=== PATIENT | female | born 1950 | race Caucasian/White ===

== ENCOUNTER 2024-09-11 09:48 | Outpatient (REF) | payer OTHER, SELFPAY ==
[2024-09-11 10:05] LABS: MANUAL DIFF FLAG NO
[2024-09-11 10:50] LABS: Basophils Percent Auto 0.5 % (0-2); Eosinophils Absolute Auto 0.1 X10*3/uL (0.0-0.4); Eosinophils Percent Auto 1.2 % (0-4); Hematocrit 34.2 % (37.0-47.0); Imm Gran Abs Auto 0.02 X10*3/uL (0.00-0.03); Imm Gran Pct Auto 0.3 % (0.0-0.4); Lymphocytes Absolute Auto 2.1 X10*3/uL (1.2-4.9); Lymphocytes Percent Auto 35.5 % (20-40); Mean Corpuscular HGB Conc 32.2 g/dl (31.0-35.0); Mean Corpuscular Hemoglobin 27.6 pg (27.0-33.0); Mean Corpuscular Volume 85.9 fL (80.0-98.0); Mean Platelet Volume 11.3 fL (9.4-12.3); Monocytes Absolute Auto 0.5 X10*3/uL (0.1-1.2); Monocytes Percent Auto 8.6 % (2-11); Neutrophils Absolute Auto 3.1 x10*3/uL (2.0-8.3); Neutrophils Percent Auto 53.9 % (45-73); Platelet Count 284 X10*3/uL (160-400); Red Blood Count 3.98 X10*6/uL (4.20-5.50); Red Cell Distribution Width 17.2 % (11.0-16.0); White Blood Count 5.8 X10*3/uL (4.8-10.8)
[2024-09-11 11:43] LABS: Alanine Aminotransferase 19 U/L (0-31); Albumin Level 4.1 g/dL (3.5-5.0); Alkaline Phosphatase 86 U/L (39-117); Anion Gap 10 (12-20); Aspartate Amino Transferase 23 U/L (5-31); Bilirubin Total 0.5 mg/dL (0.0-1.0); Blood Urea Nitrogen 11 mg/dL (9-16); Calcium 9.5 mg/dL (8.4-10.2); Carbon Dioxide 28 mmol/L (22-29); Chloride 109 mmol/L (96-108); Cholesterol 186 mg/dL (<200); Estimated Glomerular Filt Rate > 60; Glucose Random 86 mg/dL (60-115); HDL Cholesterol 38 mg/dL (>40); LDL Cholesterol Calculated 122 mg/dL (<100); Potassium 3.9 mmol/L (3.3-5.1); Sodium 143 mmol/L (135-145); Total Protein 7.3 g/dL (6.5-8.0); Triglycerides 131 mg/dL (<150)
[2024-09-11 12:01] LABS: Folate 5.6 ng/mL (> or = 4.0); Vitamin B12 371 pg/mL (200-900)
== END 2024-09-11 09:49 | disposition home or self-care (01) ==
LOC: HO.LAB 09:48
PROVIDERS: PCP Internal Medicine; Visit Provider Internal Medicine
DX: E78.00 Pure hypercholesterolemia, unspecified (principal); G30.1 Alzheimer's disease with late onset; I10 Essential (primary) hypertension; J45.909 Unspecified asthma, uncomplicated; K21.9 Gastro-esophageal reflux disease without esophagitis
CPT/HCPCS: 36415; 80053; 80061; 82607; 82746; 84443; 85025

== ENCOUNTER 2024-10-11 10:41 | Inpatient (IN) | payer MEDICARE, MEDICAID, SELFPAY ==
[2024-10-11] VITALS (8 sets, daily range): BP systolic 136–156; BP diastolic 72–80; PULSE 109–127; RESP 18; TEMP 36.2–38.1; O2SAT 88–98; BMI 27.7
--- NOTE | ~2024-10-11 | XR_ITS ---
CLINICAL HISTORY: cough chest congestion 2 view chest x-ray. Comparison: None Findings: The lungs are adequately expanded. No focal confluent opacity. No effusion or pneumothorax. Cardiac and mediastinal contours are within normal limits. No acute osseous abnormality Impression: No acute process. This document has been electronically signed by: Ranjit Alvarez MD on 10/11/2024 11:44:25
[2024-10-11 11:10] LABS: MANUAL DIFF FLAG NO
[2024-10-11 11:16] LABS: Basophils Percent Auto 0.4 % (0-2); Eosinophils Absolute Auto 0.1 X10*3/uL (0.0-0.4); Eosinophils Percent Auto 0.9 % (0-4); Hematocrit 35.2 % (37.0-47.0); Hemoglobin 11.7 g/dl (12.0-16.0); Imm Gran Abs Auto 0.02 X10*3/uL (0.00-0.03); Imm Gran Pct Auto 0.4 % (0.0-0.4); Lymphocytes Absolute Auto 1.1 X10*3/uL (1.2-4.9); Lymphocytes Percent Auto 19.8 % (20-40); Mean Corpuscular HGB Conc 33.2 g/dl (31.0-35.0); Mean Corpuscular Volume 81.3 fL (80.0-98.0); Monocytes Absolute Auto 0.4 X10*3/uL (0.1-1.2); Monocytes Percent Auto 7.5 % (2-11); Neutrophils Absolute Auto 3.8 x10*3/uL (2.0-8.3); Platelet Count 249 X10*3/uL (160-400); Red Blood Count 4.33 X10*6/uL (4.20-5.50); Red Cell Distribution Width 16.3 % (11.0-16.0); White Blood Count 5.4 X10*3/uL (4.8-10.8)
[2024-10-11 11:22] LABS: IDNOW Serial# 58CA691E; Strep A Nucleic Acid Negative (Negative)
[2024-10-11 11:33] LABS: Alanine Aminotransferase 9 U/L (0-31); Albumin Level 4.1 g/dL (3.5-5.0); Alkaline Phosphatase 91 U/L (39-117); Anion Gap 13 (12-20); Aspartate Amino Transferase 28 U/L (5-31); Bilirubin Total 0.3 mg/dL (0.0-1.0); Blood Urea Nitrogen 9 mg/dL (9-16); Calcium 8.8 mg/dL (8.4-10.2); Carbon Dioxide 21 mmol/L (22-29); Chloride 109 mmol/L (96-108); Creatinine Clr Calc Pharmacy 63.2; Estimated Glomerular Filt Rate > 60; Glucose Random 101 mg/dL (60-115); Potassium 3.3 mmol/L (3.3-5.1); Sodium 140 mmol/L (135-145); Total Protein 7.6 g/dL (6.5-8.0)
[2024-10-11 11:48] LABS: Influenza A PCR NEGATIVE (Negative); Influenza B PCR NEGATIVE (Negative); Resp Syncy Virus RNA Qual PCR POSITIVE (Negative); SARS COV2 PCR INHOUSE NEGATIVE (Negative)
[2024-10-11] MEDS: 0.9 % Sodium Chloride 1,000 ML 999 ML IV (13:05)
--- NOTE | 2024-10-11 13:05 | ED_ITS ---
HPI - General Adult General Chief complaint: General Medical Stated complaint: fever dizzy abd pain Time Seen by Provider: 10/11/24 12:36 Source: patient, family and old records reviewed Mode of arrival: ambulatory Limitations: no limitations History of Present Illness ED Provider: DIGNA LÓPEZ narrative: 73 yo female with PMH of asthma, HLD, HTN, GERD who has been sick for 5 days with cough, body aches, nausea and not feeling well. No recent travel or procedures using her INH without relief. No production to the cough, denies abdominal pain diarrhea. Last took tylenol yesterday. Finally came today as she couldn't take it anymore. She hasnot taken any medications today. She just feels tired and weak now. MD complaint: URI, weakness Onset (ago): day(s) (5) Radiation: non-radiation Severity: mild and moderate Quality: other (tightness) Pain Consistency: intermittent Relieving factors: none Exacerbating factors: movement Associated symptoms: cough, fever/chills, loss of appetite, malaise, nausea/vomiting, shortness of breath and weakness Treatments prior to arrival: none Related Data Allergies Allergy/AdvReac Type Severity Reaction Status Date / Time No Known Allergies Allergy Verified 10/11/24 10:52 Review of Systems 2 Review of Systems: Constitutional : pos Fever, pos Chills ENT/Mouth : No Hoarseness, No sore throat, No Rhinorrhea Eyes: No Redness, No Discharge, No Vision Changes Cardiovascular : No Chest Pain, positive SOB, positive Dyspnea on Exertion, No Edema Respiratory : positive Cough, pos Sputum, positive Wheezing, Gastrointestinal : pos Nausea, No Vomiting, No Diarrhea, No abdominal Pain Genitourinary : No Dysuria, No Hematuria Musculoskeletal : No joint pain, No Myalgias Skin : No rash Neuro : No Weakness, No Numbness, No Headache Psych : No anxiety, depression All other systems reviewed and are negative [facility] Past Medical History Attestation statement: The following information was validated with the patient. Source: old records reviewed Medical History HTN (hypertension) GERD (gastroesophageal reflux disease) Asthma Social History Social History (Updated 10/11/24 @ 13:27 by Dorota Tran DO) Patient Tobacco Use Status: Never used Tobacco Advance Directives: No Advance Directives Information Provided: No Do you have a plan to hurt others: No Plan Physical Exam ED Vital Signs: Vital Signs - 24 hr 10/11/24 10:49 10/11/24 14:03 10/11/24 14:56 Temperature 100.6 F H 98.4 F Pulse Rate 112 H 114 H 127 H Respiratory Rate 18 18 18 Blood Pressure 156/80 H 136/77 Pulse Oximetry 96 96 Oxygen Delivery Method Room Air Room Air BMI result Body Mass Index 27.7 Appearance: Alert. Oriented X3. No acute distress. Eyes: Pupils equal, round and reactive to light. ENT: Pharynx mildly dry MM Neck: Normal inspection. Neck supple. CVS: Normal heart rate and rhythm. Pulses normal. Respiratory: No respiratory distress. Breath sounds diminshed throughout Abdomen: Soft and non-tender. Skin: Skin warm and dry. Normal skin color. Normal skin turgor. Extremities: No lower extremity edema. No calf ttp Neuro: Oriented X 3. No motor deficit. No sensory deficit. Course Course Course Narrative: patient is already feeling better Medications Administered Discontinued Medications Generic Name Dose Route Start Last Admin Trade Name Freq PRN Reason Stop Dose Admin Albuterol Sulfate 5 mg/ 0 mg 10/11/24 13:58 10/11/24 14:03 Albuterol/Ipratropium 3 ml INHALE 10/11/24 13:59 1 each ONCE ONE Administration Acetaminophen 1,000 mg in 100 mls @ 400 mls/hr 10/11/24 12:48 10/11/24 13:21 Ofirmev IV 10/11/24 13:02 Infused ONCE ONE Infusion Sodium Chloride 1,000 mls @ 999 mls/hr 10/11/24 12:48 10/11/24 13:05 Ns IV 10/11/24 13:48 999 mls/hr .Q1H1M ONE Administration Methylprednisolone Sodium Succinate 60 mg 10/11/24 13:13 10/11/24 13:32 Methylprednisolone Sod Succ 125 Mg/2 Ml Vial IVPUSH 10/11/24 13:14 60 mg ONCE ONE Administration Ondansetron HCl 4 mg 10/11/24 12:48 10/11/24 13:06 Ondansetron Hcl 4 Mg/2 Ml Vial IVPUSH 10/11/24 12:49 4 mg ONCE ONE Administration Medical Decision Making Medical Decision Making MDM Narrative: 73 yo female with PMH of asthma, HLD, HTN, GERD who has been sick for 5 days with URI symptoms, fatigue, poor PO intake at this time will obtain labs, CXR for pneumonia, viral panel - start on fluids, tylenol and zofran. She is not hypoxic and has no cp to suggest ACS/VTE. She seems more infectious. I will give her neb and start on steroids given increased wheezing and use on INH at home. If she feels better can tolerate PO will DC home with steroids and nausea medications. Differential Diagnosis Differential Diagnoses: The differential diagnosis associated with the presentation includes URI, bronchitis, pneumonia, dehydration Admission/Observation Consideration of admission/observation: Escalation of care including admission/observation considered 88% on RA, up to 94% now on 2L NC has no O2 at home, feels better but still tachypneic will admit will admit for further work up Consult Healthcare Provider Management of the patient was discussed with: Hospitalist (will admit) Lab Data MDM Lab Attestation statement: I reviewed the patient's lab results. 10/11/24 11:04 10/11/24 11:04 Labs: Lab Results 10/11/24 Range/Units 11:04 WBC 5.4 (4.8-10.8) X10*3/uL RBC 4.33 (4.20-5.50) X10*6/uL Hgb 11.7 L (12.0-16.0) g/dl Hct 35.2 L (37.0-47.0) % MCV 81.3 (80.0-98.0) fL MCH 27.0 (27.0-33.0) pg MCHC 33.2 (31.0-35.0) g/dl RDW 16.3 H (11.0-16.0) % Plt Count 249 (160-400) X10*3/uL MPV 10.0 (9.4-12.3) fL Immature Gran % (Auto) 0.4 (0.0-0.4) % Neut % (Auto) 71.0 (45-73) % Lymph % (Auto) 19.8 L (20-40) % [place] % (Auto) 7.5 (2-11) % Eos % (Auto) 0.9 (0-4) % Baso % (Auto) 0.4 (0-2) % Lymph # (Auto) 1.1 L (1.2-4.9) X10*3/uL [place] # (Auto) 0.4 (0.1-1.2) X10*3/uL Eos # (Auto) 0.1 (0.0-0.4) X10*3/uL Baso # (Auto) 0.0 (0.0-0.2) X10*3/uL Abs Immat Gran (auto) 0.02 (0.00-0.03) X10*3/uL Absolute Neuts (auto) 3.8 (2.0-8.3) x10*3/uL Absolute Nucleated RBC 0.000 (0.0-0.012) X10*3/uL Nucleated RBC % (auto) 0.0 (0.0-0.2) /100WBC Sodium 140 (135-145) mmol/L Potassium 3.3 (3.3-5.1) mmol/L Chloride 109 H (96-108) mmol/L Carbon Dioxide 21 L (22-29) mmol/L Anion Gap 13 (12-20) BUN 9 (9-16) mg/dL Creatinine 0.67 (0.5-1.4) mg/dL Estim Creat Clear Calc 63.2 Estimated GFR > 60 Random Glucose 101 (60-115) mg/dL Calcium 8.8 D (8.4-10.2) mg/dL Total Bilirubin 0.3 (0.0-1.0) mg/dL AST 28 (5-31) U/L ALT 9 (0-31) U/L Alkaline Phosphatase 91 (39-117) U/L Troponin I High Sens < 2.7 (<3.5-17.0) ng/L Total Protein 7.6 (6.5-8.0) g/dL Albumin 4.1 (3.5-5.0) g/dL Influenza Type A (PCR) NEGATIVE (Negative) Influenza Type B (PCR) NEGATIVE (Negative) RSV RNA Qual (PCR) POSITIVE A (Negative) SARS-CoV-2 RNA (RT-PCR) NEGATIVE (Negative) S. pyogenes GrpA REED Negative (Negative) Independent Interpretation I performed an independent interpretation of an: EKG and Plain X-Ray (no pneumonia) Interpretation: Rate: 127 Rhythm: sinus tachycardia [place]: left Normal P waves. Normal ANEESH. Normal QRS complex. ST T wave : no NAYANA, inverted t waves V1-V3, nonspecific ST T wave changes laterally, inverted t waves III, aVF qTC: 427 prior studies: ST faster than priors changes could be due to rate The study has been interpreted contemporaneously by me. . Radiology Impression Discussion of test interpretation with radiology: I have reviewed the radiologist's reading. Independent Historian Clinical information obtained from an independent historian. History obtained from or confirmed by: Other (family) External Record Review External record reviewed: Outpatient record Prescription Management I considered prescription management with: Antibiotic and Other Discharge Plan Discharge Clinical Impression: RSV infection, Sinus tachycardia, Hypoxia Patient Disposition: Admitted As Inpatient Print Language: Mongolian
[2024-10-11] MEDS: Acetaminophen 1,000 MG/100 ML PIGGYBACK 400 MG IV (13:06)
[2024-10-11] MEDS: ondansetron HCL 4 MG/2 ML VIAL IVPUSH (13:06)
--- NOTE | 2024-10-11 13:25 | ECG_ITS ---
Test Reason : WEAKNESS Blood Pressure : / mmHG Vent. Rate : 127 BPM Atrial Rate : 127 BPM P-R Int : 126 ms QRS Dur : 072 ms QT Int : 294 ms P-R-T Axes : 019 -01 -51 degrees QTc Int : 427 ms Sinus tachycardia Inferior infarct , age undetermined Cannot rule out Anterior infarct , age undetermined Abnormal ECG When compared with ECG of 06-APR-2005 12:41, Inferior infarct is now Present ST now depressed in Lateral leads Inverted T waves have replaced nonspecific T wave abnormality in Inferior leads Nonspecific T wave abnormality now evident in Anterolateral leads Referred By: Dorota Tran Electronically Signed By:HERMINIO WILLARD MD
[2024-10-11] MEDS: methylPREDNISolone Sod Succ 125 MG/2 ML VIAL 60 MG IVPUSH (13:32)
[2024-10-11 13:46] LABS: Troponin-I High Sensitivity < 2.7 ng/L (<3.5-17.0)
[2024-10-11] MEDS: Albuterol Sulfate 5 MG, Albuterol/Iprat 2.5/0.5MG 3 ML 3 ML INHALE (14:03)
--- NOTE | 2024-10-11 15:34 | P.HPHOSP_ITS ---
History of Present Illness Date of Service: 10/11/24 Chief Complaint: Shortness of the breath 73F PMH moderate persistent asthma, hypertension, hyperlipidemia presented with shortness of breath. Patient has been feeling unwell for about 5 days prior to presentation with cough, body aches, subjective fevers, shortness of breath. She has tried to use her short-acting inhaler with no improvement. In ED found to be RSV positive and hypoxic to 88% on room air. Chest x-ray unremarkable. Review of Systems 2 Review of Systems: Yes all other systems are reviewed and are negative [facility] Medical History HTN (hypertension) GERD (gastroesophageal reflux disease) Asthma Social History Patient Tobacco Use Status: Never used Tobacco Advance Directives: No Advance Directives Information Provided: No Do you have a plan to hurt others: No Plan Meds Allergies Allergy/AdvReac Type Severity Reaction Status Date / Time No Known Allergies Allergy Verified 10/11/24 10:52 Home Medications ?Medication ?Instructions ?Recorded ?Confirmed ?Last Taken ?Type albuterol sulfate 90 mcg/actuation 2 puff inhalation QID PRN asthma 10/11/24 10/11/24 10/10/24 History aerosol inhaler atorvastatin 20 mg tablet 20 mg PO DAILY 10/11/24 10/11/24 10/10/24 History budesonide-formoterol HFA 160 1 puff inhalation BID 10/11/24 10/11/24 Unknown History mcg-4.5 mcg/actuation aerosol inhaler losartan 100 mg tablet 100 mg PO DAILY 10/11/24 10/11/24 10/10/24 History pantoprazole 40 mg tablet,delayed 40 mg PO DAILY@0630 10/11/24 10/11/24 10/10/24 History release sennosides 8.6 mg-docusate sodium 2 tab PO BEDTIME 10/11/24 10/11/24 10/10/24 History 50 mg tablet (Senexon-S) Physical Exam 2 Vital Signs and Narrative: Vital Signs: Last Vital Signs Temp 98.4 F 10/11/24 14:56 Pulse 127 H 10/11/24 14:56 Resp 18 10/11/24 14:56 BP 136/77 10/11/24 14:56 Pulse Ox 88 L 10/11/24 15:19 O2 Del Method Room Air 10/11/24 15:19 BMI result Body Mass Index 27.7 General: AO X 3, no acute distress Resp: CTA bilateral, no accessory muscles used CVS: S1,S2,RRR GI: soft, non tender, non distended Neuro: motor grossly intact, alert Psych: appropriate affect, appropriate insight Results Labs 10/11/24 11:04 10/11/24 11:04 Labs: Laboratory Results - last 24 hr 10/11/24 11:04 MCV 81.3 MCH 27.0 MCHC 33.2 RDW 16.3 H Plt Count 249 MPV 10.0 Immature Gran % (Auto) 0.4 Neut % (Auto) 71.0 Lymph % (Auto) 19.8 L [place] % (Auto) 7.5 Eos % (Auto) 0.9 Baso % (Auto) 0.4 Lymph # (Auto) 1.1 L [place] # (Auto) 0.4 Eos # (Auto) 0.1 Baso # (Auto) 0.0 Abs Immat Gran (auto) 0.02 Absolute Neuts (auto) 3.8 Absolute Nucleated RBC 0.000 Nucleated RBC % (auto) 0.0 Anion Gap 13 Estim Creat Clear Calc 63.2 Estimated GFR > 60 Random Glucose 101 Calcium 8.8 D Total Bilirubin 0.3 AST 28 ALT 9 Alkaline Phosphatase 91 Troponin I High Sens < 2.7 Total Protein 7.6 Albumin 4.1 Influenza Type A (PCR) NEGATIVE Influenza Type B (PCR) NEGATIVE RSV RNA Qual (PCR) POSITIVE A SARS-CoV-2 RNA (RT-PCR) NEGATIVE S. pyogenes GrpA REED Negative Assessment and Plan (1) RSV infection: Qualifiers: RSV infection type: acute bronchitis Qualified Code(s): J20.5 - Acute bronchitis due to respiratory syncytial virus Status: Acute Plan 73F PMH moderate persistent asthma, hypertension, hyperlipidemia presented with shortness of breath Acute hypoxic respiratory failure due to moderate persistent asthma with acute decompensation due to RSV Steroids, DuoNebs Wean O2 as tolerated Hypertension losartan Hyperlipidemia Continue statin DVT prophylaxis with Lovenox Full Code Patient with asthma exacerbation due to RSV causing her to be hypoxic expected require at least 2 midnights inpatient Quality Stroke Does the patient have a stroke diagnosis?: No VTE Prior VTE?: No VTE Risk Level:: Medical - moderate - high VTE Device Contraindication: Treatment Not Indicated VTE Drug Contraindication: N/A - Med Ordered
[2024-10-11] MEDS: Albuterol/Iprat 2.5/0.5MG 3 ML AMPUL.NEB INHALE ×2 (15:57→18:55)
--- NOTE | 2024-10-11 17:09 | PHA.MEDREC ---
Pharmacy Consult ? Medication Reconciliation Pharmacy has completed the medication reconciliation, spoke to patient using floor space allocator services. Patient confirmed all medications, said she doesn't take hydrochlorothiazide. Patient also confirmed albuterol inhaler and said she only uses one inhaler but has claims for symbicort. Called [facility] to confirm and they said this was still an active prescription and patient last picked up in sep 2024. Denied any OTC use and last taken was 10/10/24.
[2024-10-11] MEDS: Enoxaparin Sodium 40 MG/0.4 ML SYRINGE SUBCUT (17:46)
[2024-10-11] MEDS: 0.9 % Sodium Chloride Flush 3 ML SYRINGE IVFLUSH (17:47)
[2024-10-12 03:50] VITALS: BP 117/59; PULSE 72; RESP 18; TEMP 36.3; O2SAT 96
[2024-10-12 06:15] LABS: Hematocrit 30.8 % (37.0-47.0); Mean Corpuscular HGB Conc 32.5 g/dl (31.0-35.0); Mean Corpuscular Hemoglobin 26.9 pg (27.0-33.0); Mean Corpuscular Volume 82.8 fL (80.0-98.0); Mean Platelet Volume 10.9 fL (9.4-12.3); Platelet Count 200 X10*3/uL (160-400); Red Blood Count 3.72 X10*6/uL (4.20-5.50); Red Cell Distribution Width 16.6 % (11.0-16.0)
[2024-10-12 06:19] LABS: Anion Gap 12 (12-20); Blood Urea Nitrogen 8 mg/dL (9-16); Calcium 8.5 mg/dL (8.4-10.2); Carbon Dioxide 22 mmol/L (22-29); Chloride 110 mmol/L (96-108); Creatinine Clr Calc Pharmacy 64.2; Estimated Glomerular Filt Rate > 60; Glucose Random 117 mg/dL (60-115); Potassium 3.7 mmol/L (3.3-5.1); Sodium 140 mmol/L (135-145)
[2024-10-12] MEDS: Omeprazole 20 MG CAPSULE.DR PO (06:21)
[2024-10-12 07:13] VITALS: BP 128/60; PULSE 68; RESP 18; TEMP 36.2; O2SAT 95
[2024-10-12 07:37] VITALS: PULSE 95; RESP 16; O2SAT 99
[2024-10-12] MEDS: Albuterol/Iprat 2.5/0.5MG 3 ML AMPUL.NEB INHALE ×2 (07:37→11:32)
--- NOTE | 2024-10-12 08:05 | P.PNIM_ITS ---
Subjective Subjective Date of Service: 10/12/24 Interval History: Improved but still short of breath and wheezy Physical Exam 2 Vital Signs: Vital Signs: Last Vital Signs Temp 97.1 F 10/12/24 07:13 Pulse 95 10/12/24 07:37 Resp 16 10/12/24 07:37 BP 128/60 10/12/24 07:13 Pulse Ox 95 10/12/24 07:13 O2 Del Method Room Air 10/12/24 07:13 BMI result Body Mass Index 27.7 General: AO X 3, no acute distress Resp: midl wheeze bilateral, no accessory muscles used CVS: S1,S2,RRR GI: soft, non tender, non distended Neuro: motor grossly intact, alert Psych: appropriate affect, appropriate insight Objective Data Active Medications Acetaminophen (Acetaminophen 325 Mg Tablet) 650 mg PO Q6H PRN PRN Reason: Pain, Mild 1-3,fever,headache Albuterol/Ipratropium (Albuterol/Iprat 2.5/0.5mg 3 Ml Ampul.Neb) 3 ml INHALE RQ4H WHILE AWAKE [facility] Last Admin: 10/12/24 07:37 Dose: 3 ml Documented By: SHARMAINE Atorvastatin Calcium (Atorvastatin Calcium 20 Mg Tablet) 20 mg PO DAILY [facility] Calcium Carbonate (Calcium Carbonate 750 Mg Tab.Chew) 750 mg PO Q4H PRN PRN Reason: Heartburn Enoxaparin Sodium (Enoxaparin Sodium 40 Mg/0.4 Ml Syringe) 40 mg SUBCUT Q24H [facility] Last Admin: 10/11/24 17:46 Dose: 40 mg Documented By: KIKE Fluticasone/Vilanterol (Fluticasone/Vilanterol 200/25 Blst.W.Dev) 1 puff INHALE RDAILY [facility] Losartan Potassium (Losartan Potassium 50 Mg Tablet) 100 mg PO DAILY [facility]; Protocol Magnesium Hydroxide (Milk Of Magnesia 30 Ml Oral.Susp) 30 ml PO DAILY PRN PRN Reason: Constipation Melatonin (Melatonin 3 Mg Tablet) 6 mg PO BEDTIME PRN PRN Reason: Insomnia Omeprazole (Omeprazole 20 Mg Capsule.Dr) 20 mg PO DAILY@0630 [facility] Last Admin: 10/12/24 06:21 Dose: 20 mg Documented By: PAULO Prednisone (Prednisone 20 Mg Tablet) 40 mg PO DAILY [facility] Sodium Chloride (0.9 % Sodium Chloride Flush 3 Ml Syringe) 3 ml IVFLUSH QSHIFT SAM Last Admin: 10/12/24 03:22 Dose: Not Given Documented By: PAULO Non-Admin Reason: Patient Asleep Labs 10/12/24 05:24 10/12/24 05:24 Labs: Laboratory Results - last 24 hr 10/11/24 10/12/24 11:04 05:24 MCV 81.3 82.8 MCH 27.0 26.9 L MCHC 33.2 32.5 RDW 16.3 H 16.6 H Plt Count 249 200 MPV 10.0 10.9 Immature Gran % (Auto) 0.4 Neut % (Auto) 71.0 Lymph % (Auto) 19.[address] [place] % (Auto) 7.5 Eos % (Auto) 0.9 Baso % (Auto) 0.4 Lymph # (Auto) 1.[address] [place] # (Auto) 0.4 Eos # (Auto) 0.1 Baso # (Auto) 0.0 Abs Immat Gran (auto) 0.02 Absolute Neuts (auto) 3.8 Absolute Nucleated RBC 0.000 0.000 Nucleated RBC % (auto) 0.0 0.0 Anion Gap 13 12 Estim Creat Clear Calc 63.2 64.2 Estimated GFR > 60 > 60 Random Glucose 101 117 H Calcium 8.8 D 8.5 Total Bilirubin 0.3 AST 28 ALT 9 Alkaline Phosphatase 91 Troponin I High Sens < 2.7 Total Protein 7.6 Albumin 4.1 Influenza Type A (PCR) NEGATIVE Influenza Type B (PCR) NEGATIVE RSV RNA Qual (PCR) POSITIVE A SARS-CoV-2 RNA (RT-PCR) NEGATIVE S. pyogenes GrpA REED Negative Assessment and Plan (1) RSV infection: Status: Acute Plan 73F PMH moderate persistent asthma, hypertension, hyperlipidemia presented with shortness of breath Acute hypoxic respiratory failure due to moderate persistent asthma with acute decompensation due to RSV Steroids, DuoNebs now on room air Hypertension losartan Hyperlipidemia Continue statin DVT prophylaxis with Lovenox Full Code reason for continued hospitalization:still sob and wheezy Quality Stroke Does the patient have a stroke diagnosis?: No VTE Prior VTE?: No VTE Risk Level:: Medical - moderate - high VTE Device Contraindication: Treatment Not Indicated VTE Drug Contraindication: N/A - Med Ordered
[2024-10-12] MEDS: 0.9 % Sodium Chloride Flush 3 ML SYRINGE IVFLUSH (08:46)
[2024-10-12 08:47] VITALS: BP 133/60
[2024-10-12] MEDS: Losartan Potassium 50 MG TABLET 100 MG PO (08:47)
[2024-10-12] MEDS: predniSONE 20 MG TABLET 40 MG PO (08:49)
[2024-10-12] MEDS: Atorvastatin Calcium 20 MG TABLET PO (08:49)
--- NOTE | 2024-10-12 11:10 | P.DS_ITS ---
DS: Providers Provider Date of Service: 10/12/24 Date of admission: 10/11/24 15:33 Date of discharge: 10/12/24 Primary care physician: Annette Taylor MD DS: Diagnosis Discharge Diagnosis (1) RSV infection: Status: Acute DS: Summary Hospital Course Hospital Course: from initial hpi: 73F PMH moderate persistent asthma, hypertension, hyperlipidemia presented with shortness of breath. Patient has been feeling unwell for about 5 days prior to presentation with cough, body aches, subjective fevers, shortness of breath. She has tried to use her short-acting inhaler with no improvement. In ED found to be RSV positive and hypoxic to 88% on room air. Chest x-ray unremarkable. hospital course: Patient was admitted for acute hypoxic respiratory failure due to moderate persistent asthma with acute decompensation due to RSV. She was treated with steroids and DuoNebs and weaned to room air. Symptoms improved faster than expected and patient will be discharged home on 5 more days of prednisone. For hypertension was continued on losartan. For hyperlipidemia was continue on statin. Time Attestation Discharge Coordination Time (in mins): 34 Quality: Safe Use of Opioids Does Pt have an Active Cancer Diagnosis on the Problem List?: No Quality: Stroke Does the patient have a stroke diagnosis?: No Physical Exam Vital Signs: Vital Signs: Last Vital Signs Temp 97.1 F 10/12/24 07:13 Pulse 95 10/12/24 07:37 Resp 16 10/12/24 07:37 BP 133/60 10/12/24 08:47 Pulse Ox 95 10/12/24 07:13 O2 Del Method Room Air 10/12/24 07:13 BMI result Body Mass Index 27.7 General: AO X 3, no acute distress Resp: CTA bilateral, no accessory muscles used CVS: S1,S2,RRR GI: soft, non tender, non distended Neuro: motor grossly intact, alert Psych: appropriate affect, appropriate insight DS: Data Data Completed and Pending Labs on day of discharge: Laboratory Results - last 24 hr 10/11/24 10/12/24 11:04 05:24 WBC 5.4 4.0 L RBC 4.33 3.72 L Hgb 11.7 L 10.0 L Hct 35.2 L 30.8 L MCV 81.3 82.8 MCH 27.0 26.9 L MCHC 33.2 32.5 RDW 16.3 H 16.6 H Plt Count 249 200 MPV 10.0 10.9 Immature Gran % (Auto) 0.4 Neut % (Auto) 71.0 Lymph % (Auto) 19.8 L [place] % (Auto) 7.5 Eos % (Auto) 0.9 Baso % (Auto) 0.4 Lymph # (Auto) 1.1 L [place] # (Auto) 0.4 Eos # (Auto) 0.1 Baso # (Auto) 0.0 Abs Immat Gran (auto) 0.02 Absolute Neuts (auto) 3.8 Absolute Nucleated RBC 0.000 0.000 Nucleated RBC % (auto) 0.0 0.0 Sodium 140 140 Potassium 3.3 3.7 Chloride 109 H 110 H Carbon Dioxide 21 L 22 Anion Gap 13 12 BUN 9 8 L Creatinine 0.67 0.66 Estim Creat Clear Calc 63.2 64.2 Estimated GFR > 60 > 60 Random Glucose 101 117 H Calcium 8.8 D 8.5 Total Bilirubin 0.3 AST 28 ALT 9 Alkaline Phosphatase 91 Troponin I High Sens < 2.7 Total Protein 7.6 Albumin 4.1 Influenza Type A (PCR) NEGATIVE Influenza Type B (PCR) NEGATIVE RSV RNA Qual (PCR) POSITIVE A SARS-CoV-2 RNA (RT-PCR) NEGATIVE S. pyogenes GrpA REED Negative Discharge Plan Discharge Anticipated Discharge Date/Time: 10/12/24 11:09 Patient Disposition: Home, Self-Care Discharge Diagnosis: rsv asthma Referrals: Annette Taylor MD [Primary Care Provider] - 1 Week Discharge Medications: New prednisone 20 mg tablet 40 mg PO DAILY Qty: 10 0RF Continued atorvastatin 20 mg tablet 20 mg PO DAILY sennosides-docusate sodium [Senexon-S] 8.6-50 mg tablet 2 tab PO BEDTIME pantoprazole 40 mg tablet,delayed release (DR/EC) 40 mg PO DAILY@0630 albuterol sulfate 90 mcg/actuation HFA aerosol inhaler 2 puff INHALATION QID PRN (Reason: asthma) losartan 100 mg tablet 100 mg PO DAILY budesonide-formoterol 160-4.5 mcg/actuation HFA aerosol inhaler 1 puff inhalation BID Discharge Orders: Discharge Order (Routine); Ordered 10/12/24 Ordered By: Brennen Arias Diet: Advance to usual diet Activity on Discharge: As tolerated Stand Alone Forms: Patient Portal Discharge page Print Language: Amharic Care Plan Goals: recovery Health Concerns: rsv Plan of Treatment: 5 more days prednisome Assessment: see above
--- NOTE | 2024-10-12 11:21 | MHC.CM.PN ---
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
[2024-10-12 11:33] VITALS: PULSE 77; RESP 16; O2SAT 92
[2024-10-12] MEDS: Fluticasone/Vilanterol 200/25 BLST.W.DEV 1 PUFF INHALE (11:33)
--- NOTE | 2024-10-12 13:10 | PC.NURSE ---
jim Roy completed discharge instructions and explained to patient
== END 2024-10-12 13:10 | disposition home or self-care (01) | DRG 202 ==
LOC: HO.ED 15:09 → HO.EDOVER 15:36 → HO.S3 15:52
PROVIDERS: Admitting Provider Internal Medicine; Emergency Provider Emergency Medicine; PCP Internal Medicine; Visit Provider Internal Medicine
DX: J45.41 Moderate persistent asthma with (acute) exacerbation (principal); J96.01 Acute respiratory failure with hypoxia; K21.9 Gastro-esophageal reflux disease without esophagitis; E78.5 Hyperlipidemia, unspecified; B97.4 Respiratory syncytial virus as the cause of diseases classified elsewhere; I10 Essential (primary) hypertension; Z20.822 Contact with and (suspected) exposure to COVID-19; Z79.899 Other long term (current) drug therapy
CPT/HCPCS: 0241U; 36415; 71046; 80048; 80053; 84484; 85025; 85027; 87651; 93005; 94640; 99285; J0131; J1650; J2405; J2919

== ENCOUNTER → 2024-10-11 10:53 | Outpatient (BNV) | payer MEDICARE, MEDICAID, SELFPAY | PROVIDERS: PCP Internal Medicine; Visit Provider Radiology Vascular & Interventional Radiology | DX: R05.9 Cough, unspecified (principal) | CPT/HCPCS: 71046 ==

== ENCOUNTER → 2024-10-11 13:25 | Outpatient (BNV) | payer MEDICARE, MEDICAID, SELFPAY | PROVIDERS: Admitting Provider Internal Medicine; Emergency Provider Emergency Medicine; PCP Internal Medicine; Visit Provider Internal Medicine Cardiovascular Disease | DX: R94.31 Abnormal electrocardiogram [ECG] [EKG] (principal) | CPT/HCPCS: 93010 ==

== ENCOUNTER → 2024-10-11 15:33 | Outpatient (BNV) | payer MEDICARE, MEDICAID, SELFPAY | PROVIDERS: Admitting Provider Internal Medicine; Emergency Provider Emergency Medicine; PCP Internal Medicine; Visit Provider Internal Medicine | DX: J20.5 Acute bronchitis due to respiratory syncytial virus (principal) | CPT/HCPCS: 99239; 99499 ==

== ENCOUNTER 2025-02-06 09:26 | Outpatient (REF) | payer MEDICARE, MEDICAID, SELFPAY ==
--- OUTSIDE RECORDS SUMMARY | 2025-02-06 10:20 | XMS_ITS | Clinical Summary ---
Author Organization [facility] Address [address] [place] [address] [address] [place] [address] Care Team Providers Care Saturator Operator Name Role Phone Unavailable Primary Care Provider Unavailabl e Allergies No known active allergies Medications hydroCHLOROthiaz alex (Microzide) 12.5 MG capsule 04/16/2024 Act jenelle losartan (Cozaar) 100 MG tablet Take 1 tablet by mouth Once per day. 10/05/2024 Active atorvastatin (Lipitor) 20 MG tablet Take 1 tablet by mouth Once per day. 10/05/2024 Active Active Problems No known active problems Encounters Date Type Department Care Team Description 01/23/2025 9:30 AM EDT Office Visit [facility] [address] [place] [phone] Maxwell Walker DMD 01/09/2025 1:30 PM EDT Office Visit [facility] [address] [place] [phone] Maxwell Walker DMD 12/19/2024 11:00 AM EDT Office Visit [facility] [address] [place] [phone] Maxwell Walker DMD 11/22/2024 9:00 AM EST Office Visit [facility] [address] [place] [phone] Gabi Gimenez Complete edentulism, unspecified edentulism class (Primary Dx) from Last 3 Months Social History Tobacco Use Types Packs/Day Years Used Date Smoking Tobacco: Never Smokeless Tobacco: Never Tobacco Cessation:Counseling Given: Not Answered Comments Unknown Sex and Gender Information Value Date Recorded Sex Assigned at Female 09/04/2024 9:12 AM EST Legal Sex Female 9:11 AM EST Gender Identity Female 09/04/2024 9:12 AM EST Sexual Orientation Straight 09/04/2024 9 :12 AM EST Last Filed Vital Signs Vital Sign Reading Time Taken Comments Blood Pressure 118/76 01/23/2025 9:30 AM EDT Pulse 60 01/23/2025 9:30 AM EDT Temperature - - Respiratory Rate - - Oxygen Saturation - - Inhaled Oxygen Concentration - - Weight - - Height - - Body Mass Index - - Plan of Treatment Upcoming Encounters Date Type Department Care Team (Late st Contact Info) Description 02/06/2025 11:00 AM EDT Office Visit [facility] [address], [place] [phone] Maxwell Walker, DMD [address], [place] [phone] Health Maintenance Due Date Last Done Comments Dental Prophylaxis 1948 Dental X-Ray: Bitewings 1948 Depression Screening 1948 SDOH Screening 1948 Alcohol/Substance Use Screening 1960 Hepatitis C Screening 1966 DTaP/Tdap/Td Vaccines (1 - Tdap) 1967 Pneumococcal Vaccine: 50+ Ye ars (1 of 1 - PCV) 1998 Zoster Vaccines (1 of 2) 1998 RSV Patients and Pa tients Aged 60 years or older (1 - 1-dose 75+ series) 2023 COVID-19 Vaccine ( - 2023-2 5 season) 2024 Influenza Vaccine (#1) 2024 Dental Oral Exam 05/23/2025 11/22/2024 Tobacco Screening 01/23/2026 01/23/2025 Dental X-Ray: Full Mouth 11/23/2027 11/22/2024 HIB Vaccines Aged Out No longer eligi ble based on patient's age to complete this topic HPV Vaccines Aged Out No longer eligi ble based on patient's age to complete this topic Hepatitis A Vaccines Aged Out No long er eligible based on patient's age to complete this topic Hepatitis B Vaccines Aged Out No long er eligible based on patient's age to complete this topic IPV Vaccines Aged Out No longer eligi ble based on patient's age to complete this topic Meningococcal Vaccine Aged Out No [place] west eligible based on patient's age to complete this topic RSV under 20 months Aged Out No longe r eligible based on patient's age to complete this topic Rotavirus Vaccines Aged Out No longer eligible based on patient's age to complete this topic Procedures Procedure Name Priority Date/Time Associated Diagnosis Comments WAX TRY IN Routine 01/23/2025 9:30 AM EDT DENTURE IMPRESSION Routine 01/09/2025 1: 30 PM EDT BITE REGISTRATION Routine 01/09/2025 1:3 0 PM EDT DENTURE IMPRESSION Routine 12/19/2024 11 :00 AM EDT COMPREHENSIVE ORAL EVALUATION - NEW OR ESTABLISHED PATIENT Routine 11/22/2024 9:00 AM EST CASE PRESENTATION, DETAILED AND EXTENSIVE TREATMENT PLANNING Routine 11/22/2024 9:00 AM EST PANORAMIC RADIOGRAPHIC IMAGE Routine 11/22/2024 9:00 AM EST Bharathi COMPLETE DENTURE Routine 11/22/2024 12:00 AM EST Max COMPLETE DENTURE Routine 11/22/2024 12:00 AM EST 32 EXTRACTION Routine 11/22/2024 12:00 AM EST 31 EXTRACTION Routine 11/22/2024 12:00 AM EST 30 EXTRACTION Routine 11/22/2024 12:00 AM EST 29 EXTRACTION Routine 11/22/2024 12:00 AM EST 28 EXTRACTION Routine 11/22/2024 12:00 AM EST 27 EXTRACTION Routine 11/22/2024 12:00 AM EST 26 EXTRACTION Routine 11/22/2024 12:00 AM EST 25 EXTRACTION Routine 11/22/2024 12:00 AM EST 24 EXTRACTION Routine 11/22/2024 12:00 AM EST 23 EXTRACTION Routine 11/22/2024 12:00 AM EST 22 EXTRACTION Routine 11/22/2024 12:00 AM EST 21 EXTRACTION Routine 11/22/2024 12:00 AM EST 20 EXTRACTION Routine 11/22/2024 12:00 AM EST 19 EXTRACTION Routine 11/22/2024 12:00 AM EST 18 EXTRACTION Routine 11/22/2024 12:00 AM EST 17 EXTRACTION Routine 11/22/2024 12:00 AM EST 16 EXTRACTION Routine 11/22/2024 12:00 AM EST 15 EXTRACTION Routine 11/22/2024 12:00 AM EST 14 EXTRACTION Routine 11/22/2024 12:00 AM EST 13 EXTRACTION Routine 11/22/2024 12:00 AM EST 12 EXTRACTION Routine 11/22/2024 12:00 AM EST 11 EXTRACTION Routine 11/22/2024 12:00 AM EST 10 EXTRACTION Routine 11/22/2024 12:00 AM EST 9 EXTRACTION Routine 11/22/2024 12:00 AM EST 8 EXTRACTION Routine 11/22/2024 12:00 AM EST 7 EXTRACTION Routine 11/22/2024 12:00 AM EST 6 EXTRACTION Routine 11/22/2024 12:00 AM EST 5 EXTRACTION Routine 11/22/2024 12:00 AM EST 4 EXTRACTION Routine 11/22/2024 12:00 AM EST 3 EXTRACTION Routine 11/22/2024 12:00 AM EST 2 EXTRACTION Routine 11/22/2024 12:00 AM EST 1 EXTRACTION Routine 11/22/2024 12:00 AM EST from Last 3 Months Insurance [facility]AL-[facility] MEDICAID STAND ADULT
[2025-02-06 10:34] LABS: MANUAL DIFF FLAG NO
[2025-02-06 10:53] LABS: Basophils Percent Auto 0.7 % (0-2); Eosinophils Absolute Auto 0.2 X10*3/uL (0.0-0.4); Eosinophils Percent Auto 3.8 % (0-4); Hemoglobin 11.1 g/dl (12.0-16.0); Imm Gran Abs Auto 0.05 X10*3/uL (0.00-0.03); Imm Gran Pct Auto 0.8 % (0.0-0.4); Lymphocytes Absolute Auto 1.5 X10*3/uL (1.2-4.9); Lymphocytes Percent Auto 24.5 % (20-40); Mean Corpuscular HGB Conc 30.8 g/dl (31.0-35.0); Mean Corpuscular Hemoglobin 25.5 pg (27.0-33.0); Mean Corpuscular Volume 82.6 fL (80.0-98.0); Mean Platelet Volume 10.5 fL (9.4-12.3); Monocytes Absolute Auto 0.4 X10*3/uL (0.1-1.2); Monocytes Percent Auto 5.8 % (2-11); Neutrophils Absolute Auto 3.9 x10*3/uL (2.0-8.3); Neutrophils Percent Auto 64.4 % (45-73); Platelet Count 339 X10*3/uL (160-400); Red Blood Count 4.36 X10*6/uL (4.20-5.50); Red Cell Distribution Width 17.2 % (11.0-16.0)
[2025-02-06 11:11] LABS: Cholesterol 157 mg/dL (<200); HDL Cholesterol 35 mg/dL (>40); LDL Cholesterol Calculated 100 mg/dL (<100); Triglycerides 113 mg/dL (<150)
[2025-02-06 11:25] LABS: Ferritin 5 ng/mL (10-250)
== END 2025-02-06 09:27 | disposition home or self-care (01) ==
LOC: HO.10HDL 09:26
PROVIDERS: Visit Provider Internal Medicine
DX: E78.00 Pure hypercholesterolemia, unspecified (principal); I10 Essential (primary) hypertension; J45.909 Unspecified asthma, uncomplicated; Z68.37 Body mass index [BMI] 37.0-37.9, adult
CPT/HCPCS: 36415; 80061; 82728; 85025

== ENCOUNTER 2025-05-01 11:19 | Emergency (ER) | payer MEDICARE, MEDICAID, SELFPAY ==
--- NOTE | ~2025-05-01 | XR_ITS ---
EXAMINATION: XR WRIST, LEFT CLINICAL INFORMATION: trauma COMPARISON: None available. TECHNIQUE: PA, lateral, and oblique views of the left wrist. FINDINGS: Acute transverse distal radial metaphyseal fracture, likely intra-articular, with minimal dorsal angulation, no significant impaction, and minimal displacement. No additional fractures or dislocation. The ulna appears intact. Carpal bones maintain normal alignment appear intact. 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 There is diffuse soft tissue swelling about the wrist. XR/XR wrist LT min 3V IMPRESSION: Transverse distal radial metaphyseal fracture, likely intra-articular, with mild dorsal angulation and mild displacement. Electronically signed by: Lui Doherty MD 05/01/2025 11:50 AM EDT
--- NOTE | ~2025-05-01 | CT_ITS ---
EXAMINATION: CT CERVICAL SPINE WITHOUT CONTRAST CLINICAL INFORMATION: Trauma COMPARISON: None available. TECHNIQUE: Axial imaging was performed from the base of the skull through T2 without IV contrast. Coronal and sagittal reformatted images were generated from the original axial data set. ALARA: The examination used one or more of the following radiation dose reduction techniques: Automated exposure control, iterative reconstruction, and/or adjustment of mA and/or KV. DLP: 724 mGY*cm FINDINGS: There is no prevertebral edema. Vertebral body height and alignment is preserved. No fracture lines are evident. There are minimal degenerative changes. CT/CT cervical spine wo IV con IMPRESSION: Unremarkable cervical spine. Electronically signed by: Nestor Duran MD 05/01/2025 12:12 PM EDT
--- NOTE | ~2025-05-01 | CT_ITS ---
EXAMINATION: CT HEAD WITHOUT CONTRAST CLINICAL INFORMATION: Trauma COMPARISON: None available. TECHNIQUE: Contiguous axial imaging was performed from the skull base to vertex without intravenous administration of contrast. This CT examination was performed using dose optimization techniques as appropriate, variously including the following: *Automated exposure control *Adjustment of mA and/or kV according to patient size (this includes techniques or standardized protocols for targeted exams where dose is matched to indication/reason for exam; i.e. extremities or head) *Use of iterative reconstruction technique DLP: 724 mGY*cm FINDINGS: There is no acute ischemic change. There is no intracranial hemorrhage. There is no mass-effect or midline shift. Basal cisterns and ventricles are within normal limits for age/cerebral volume. Orbits are symmetrical and unremarkable. Paranasal sinuses and mastoid air cells are pneumatized. There are no bony abnormalities. CT/CT head/brain wo IV con IMPRESSION: No acute intracranial abnormality. Electronically signed by: Nestor Duran MD 05/01/2025 12:14 PM EDT
--- NOTE | ~2025-05-01 | XR_ITS ---
EXAMINATION: XR FOOT, RIGHT CLINICAL INFORMATION: trauma COMPARISON: None available. TECHNIQUE: AP, lateral, and oblique views of the right foot. 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 There are small marginal ossified involving the lateral aspect of the first metatarsophalangeal joint. No fracture lucency is evident. There is a small enthesophyte at the Achilles insertion. The dorsal pedal artery demonstrates stippled atherosclerotic calcification. XR/XR foot RT min 3V IMPRESSION: No acute abnormality. Electronically signed by: Nestor Duran MD 05/01/2025 11:51 AM EDT
[2025-05-01 11:25] VITALS: BP 118/72; BP 140/60; PULSE 72; PULSE 78; RESP 18; TEMP 36.5; O2SAT 96; BMI 25.7
--- NOTE | 2025-05-01 11:30 | ED_ITS ---
HPI - Fall General Chief Complaint: Fall Stated Complaint: fall, +HS, +ccollar Time Seen by Provider: 05/01/25 11:20 Source: patient Mode of arrival: EMS Limitations: no limitations History of Present Illness HPI Narrative: This is a 74 years old female brought in by ambulance after a fall she states that she tripped and fell she is complaining of left wrist pain right foot pain neck pain headache no other injury no chest wall pain no abdominal pain no syncope complaint: fall Onset (ago): hour(s) (1) Fall from: standing Place fall occurred: street Loss of consciousness: none Symptoms prior to fall: none Context: tripped/slipped Location of injury: head and other (left wrist) Severity: moderate Quality: dull Associated symptoms (after fall): denies Related Data Home Medications ?Medication ?Instructions ?Recorded ?Confirmed albuterol sulfate 90 mcg/actuation 2 puff inhalation Q ID PRN asthma 10/11/24 10/11/24 aerosol inhaler atorvastatin 20 mg tablet 20 mg PO DAILY 10/11/2411/04 budesonide-formoterol HFA 160 1 puff inhalation BID 10/11/24 mcg-4.5 mcg/actuation aerosol inhaler losartan 100 mg tablet 100 mg PO DAILY 10/11/2411/04 pantoprazole 40 mg tablet,delayed 40 mg PO DAILY@0630 10/11/24 10/11/24 release sennosides 8.6 mg-docusate sodium 2 tab PO BEDTIME 11/0410/11/24 50 mg tablet (Senexon-S) Previous Rx's ?Medication ?Instructions ?Recorded prednisone 20 mg tablet 40 mg (2 x 20 mg) PO DAILY # 10 tabs 10/12/24 Allergies Allergy/AdvReac Type Severity Reaction Status Date / Time No Known Allergies Allergy Verified 05/01/25 11:29 Review of Systems Constitutional: Constitutional: Reports no additional constitutional complain ts ENT: Reports system reviewed and no additional complaints, except as documented Cardiovascular: Cardiovascular: Reports no additional cardiovascular complaints [facility] Past Medical History Attestation statement: The following information was validated with the patient. Medical History HTN (hypertension) GERD (gastroesophageal reflux disease) Asthma Social History Social History Household Members: Family Housing: House Do you presently have visiting nurse or other home services: No Patient Tobacco Use Status: Never used Tobacco Advance Directives: No Advance Directives Information Provided: Yes Do you have a plan to hurt others: No Plan service: No Physical Exam Exam: Exam: No Acute distress C-collar on Vital Signs: Vital Signs: Last Vital Signs Temp 97.7 F 05/01/25 11:25 Pulse 78 05/01/25 11:25 Resp 18 05/01/25 11:25 BP 140/60 H 05/01/25 11:25 Pulse Ox 96 05/01/25 11:25 O2 Del Method Room Air 05/01/25 11:25 BMI result Body Mass Index 25.7 Const: General: cooperative Nutritional Appearance: average body habitus Orientation/consciousness: patient oriented x3 Limitations: no limitations HEENT: Head: Yes normal to inspection General nose exam: Normal external nose present Face and sinus: Yes normal facial exam Mouth: Normal oral and palatal mucosa present Neck: Neck: Yes normal visual inspection Chest: Chest palpation & inspection: normal inspection of the chest Resp: Effort & Inspection: normal respiratory effort Auscultation: clear to auscultation bilaterally Cardio: Jugular venous distension: no JVD Rate: regular rate Rhythm: regular rhythm GI: Inspection: Yes normal to inspection Palpation (GI): Soft to palpation, not firm and nontender Percussion: Yes normal to percussion Auscultation: normal bowel sounds Skin: General skin exam: no rashes or lesions noted and elasticity normal Lesions: no lesions Rashes: no rashes Neuro: General: patient oriented x3 Extrem: Other: Tenderness in the left wrist and right foot Course Course Course Narrative: X-ray reviewed fracture of the left wrist ring removed I spoke with Heide Anguianowrist splinted Reevaluation(s) Reevaluation #1: splint done by me Time: 13:31 Medications Administered Discontinued Medications Generic Name Dose Route Start Last Admin Trade Name Freq PRN Reason Stop Dose Admin Acetaminophen 975 mg 05/01/25 11:29 05/01/25 11:33 Acetaminophen 325 Mg Tablet PO 05/01/25 11:30 975 mg ONCE ONE Administration Procedures Orthopedic Splinting/Casting left wrist fx: Side: left Upper Extremity Injury Location: wrist Upper Extremity Immobilizer: sugar tong splint Additional Comments: splint applied by me circulation checked after OK Medical Decision Making Medical Decision Making MDM Narrative: Patient presented after a mechanical fall we will obtain imaging of the head/C- spine x-ray of the left wrist Differential Diagnosis Differential Diagnoses: The differential diagnosis associated with the presentation includes Subdural hematoma/epidural hematoma/cervical spine fracture Admission/Observation Consideration of admission/observation: Escalation of care including admi ssion/observation considered Consult Healthcare Provider Management of the patient was discussed with: Bladder Changer Lux Jaeger Independent Interpretation I performed an independent interpretation of an: Plain X-Ray Interpretation: I personally reviewed interpreted the x-ray as a pressure wrist Radiology Impression Discussion of test interpretation with radiology: I have reviewed the radiologist's reading. Radiologist Impression: Fracture wrist Independent Historian daughter/EMS Discharge Plan Discharge Clinical Impression: Fracture of wrist Qualifiers: Encounter type: initial encounter Fracture type: closed Laterality: left Qualified Code(s): S62.102A - Fracture of unspecified carpal bone, left wrist, initial encounter for closed fracture Patient Disposition: Home, Self-Care Instructions: Wrist Fracture in Adults (ED) Additional Instructions: You need to see the orthopedist for follow-up you have a wrist fracture, call the office to make an appointment. Prescriptions: No Action atorvastatin 20 mg tablet 20 mg PO DAILY sennosides-docusate sodium [Senexon-S] 8.6-50 mg tablet 2 tab PO BEDTIME pantoprazole 40 mg tablet,delayed release (DR/EC) 40 mg PO DAILY@0630 albuterol sulfate 90 mcg/actuation HFA aerosol inhaler 2 puff INHALATION QID PRN (Reason: asthma) losartan 100 mg tablet 100 mg PO DAILY budesonide-formoterol 160-4.5 mcg/actuation HFA aerosol inhaler 1 puff inhalation BID prednisone 20 mg tablet 40 mg PO DAILY Qty: 10 0RF Referrals: Goran Flanagan MD [Physician, Orthopedics] - 05/03/25 Clinical Impression: Fracture of wrist Print Language: Citizen Of [place]
--- OUTSIDE RECORDS SUMMARY | 2025-05-01 13:31 | XMS_ITS | Clinical Summary ---
Author Organization [facility] Address [address] [place] [address] [address] [place] [address] Care Team Providers Care Sql Data Analyst Name Role Phone Unavailable Primary Care Provider [...] Encounters Date Type Department Care Team Description 02/20/2025 1:30 PM EDT Office Visit [facility] [address] [place] [phone] Maxwell Walker DMD 02/06/2025 11:00 AM EDT Office Visit [facility] [address] [place] [phone] Maxwell Walker DMD from Last 3 Months Social History Tobacco Use Types Packs/Day Years Used Date Smoking Tobacco: Never Smokeless Tobacco: Never Tobacco Cessation:Counseling Given: Not Answered Comments Unknown Sex and Gender Information Value Date Recorded Sex Assigned at Female 09/04/2024 9:12 AM EST Legal Sex Female 9:11 AM EST Gender Identity Female 09/04/2024 9:12 AM EST Sexual Orientation Straight 09/04/2024 9: 12 AM EST Last Filed Vital Signs Vital Sign Reading Time Taken Comments Blood Pressure 142/80 02/20/2025 1:25 PM EDT Pulse 60 01/23/2025 9:30 AM EDT Temperature - - Respiratory Rate - - Oxygen Saturation - - Inhaled Oxygen Concentration - - Weight - - Height - - Body Mass Index - - Plan of Treatment Health Maintenance Due Date Last Done Comments [...] Vaccine ( - 2023-2 5 season) 2024 Dental Oral Exam 05/23/2025 11/22/2024 Influenza Vaccine (#1) 2025 Tobacco Screening 02/20/2026 02/20/2025 Dental X-Ray: Full Mouth 11/23/2027 11/22/2024 HIB [...] patient's age to complete this topic Meningococcal B Vaccine Aged Out No l onger eligible based on patient's age to complete [...] Procedure Name Priority Date/Time Associated Diagnosis Comments DENTURE FOLLOWUP Routine 02/20/2025 1:30 PM EDT CASE PRESENTATION, DETAILED AND EXTENSIVE TREATMENT PLANNING Routine 02/06/2025 11:00 AM EDT Bharathi COMPLETE DENTURE - MANDIBULAR Routine 02/06/2025 11:00 AM EDT Max COMPLETE DENTURE - MAXILLARY Routine 02/06/2025 11:00 AM EDT PANORAMIC RADIOGRAPHIC IMAGE Routine 11/22/2024 9:00 AM EST COMPREHENSIVE ORAL EVALUATION - NEW OR ESTABLISHED PATIENT Routine 11/22/2024 9:00 AM EST from Last 3 Months or Most Recently Relevant to Health Maintenance [facility] ST[facility]
--- OUTSIDE RECORDS SUMMARY | 2025-05-01 13:31 | XMS_ITS | Patient Health Record ---
Author Organization [facility] Address [address] [place] [address] Care Team Providers Care Lode Miner Blasting Name Role Phone Brain Persaud Unavailable [phone] Reason For Referral No Information Plan Of Treatment No Information
[2025-05-01 14:30] VITALS: BP 140/60; PULSE 78; RESP 18; TEMP 36.5; O2SAT 96
== END 2025-05-01 14:30 | disposition home or self-care (01) ==
PROVIDERS: Emergency Provider Emergency Medicine
DX: S62.102A Fracture of unspecified carpal bone, left wrist, initial encounter for closed fracture (principal); W01.0XXA Fall on same level from slipping, tripping and stumbling without subsequent striking against object, initial encounter; M25.532 Pain in left wrist; M79.671 Pain in right foot; M54.2 Cervicalgia; R51.9 Headache, unspecified; Y93.01 Activity, walking, marching and hiking; Y92.480 Sidewalk as the place of occurrence of the external cause; Y99.9 Unspecified external cause status
CPT/HCPCS: 29125; 70450; 72125; 73110; 73630; 99284

== ENCOUNTER → 2025-05-01 11:28 | Outpatient (BNV) | payer MEDICARE, MEDICAID, SELFPAY | PROVIDERS: Emergency Provider Emergency Medicine; Visit Provider Radiology Diagnostic Radiology | DX: M54.2 Cervicalgia (principal); R51.9 Headache, unspecified; S52.322A Displaced transverse fracture of shaft of left radius, initial encounter for closed fracture; M79.671 Pain in right foot; W01.0XXA Fall on same level from slipping, tripping and stumbling without subsequent striking against object, initial encounter | CPT/HCPCS: 73110 ==

== ENCOUNTER 2025-05-03 20:42 | Emergency (ER) | payer MEDICARE, MEDICAID, SELFPAY ==
--- OUTSIDE RECORDS SUMMARY | 2025-05-03 21:26 | XMS_ITS | Clinical Summary ---
Author Organization [facility] Address [address] [place] [address] [address] [place] [address] Care Team Providers Care Box Attacher Name Role Phone Unavailable Primary Care Provider [...] Description 02/20/2025 1:30 PM EDT Office Visit [facility] [address] [place] [phone] Maxwell Walker DMD 02/06/2025 11:00 AM EDT Office Visit [facility] [address] [place] [phone] Maxwell Walker DMD from Last 3 Months [...] Most Recently Relevant to Health Maintenance Insurance [facility] STAND ADULT Member Subscriber Plan / Payer (Ef fective 2013-Present) Name:Hallie Dowell Relation to Subscriber:Self Name:Hallie Dowell Payer ID:Not on file Group ID:Not on file Type:Not on file Address: [address] [address]
== END 2025-05-03 21:28 | disposition left against medical advice (07) ==
PROVIDERS: Emergency Provider Emergency Medicine
DX: L50.8 Other urticaria (principal); Z53.21 Procedure and treatment not carried out due to patient leaving prior to being seen by health care provider

== ENCOUNTER 2025-05-09 08:25 | Outpatient (REF) | payer MEDICARE, MEDICAID, SELFPAY ==
--- NOTE | ~2025-05-09 | XR_ITS ---
CLINICAL HISTORY: M25.532 - Pain in left wrist 4 view left wrist Comparison: None provided Findings: Impacted fracture of the distal radial metaphysis with intra-articular extension. No dislocation. No radiopaque foreign body. Skin fold artifact versus laceration in the thenar eminence. IMPRESSION: 1. Impacted fracture of the distal radial metaphysis with intra-articular extension. 2. Skin fold artifact versus laceration in the thenar eminence. This document has been electronically signed by: Renetta Curz MD on 05/09/2025 22:18:24
--- OUTSIDE RECORDS SUMMARY | 2025-05-09 08:37 | XMS_ITS | Patient Health Record ---
Author Organization [facility] Address [address] [place] [address] Care Team Providers Care J2Ee Programmer Name Role Phone Brain Persaud Unavailable [phone] Reason For Referral No Information Plan Of Treatment No Information
--- OUTSIDE RECORDS SUMMARY | 2025-05-09 08:37 | XMS_ITS | Clinical Summary ---
Author Organization [facility] Address [address] [place] [address] [address] [place] [address] Care Team Providers Care Graining Press Operator Name Role Phone Unavailable Primary Care [...] Description 02/20/2025 1:30 PM EDT Office Visit [facility] [address] [place] [phone] Maxwell Walker DMD from Last 3 Months [...] - 1-dose 75+ series) 2023 COVID-19 Vaccine (1 - 2023-2 5 season) 2024 Dental Oral [...] DENTURE FOLLOWUP Routine 02/20/2025 1:30 PM EDT PANORAMIC RADIOGRAPHIC IMAGE Routine 11/22/2024 9:00 AM EST COMPREHENSIVE ORAL EVALUATION - NEW OR ESTABLISHED PATIENT Routine 11/22/2024 9:00 AM EST from Last 3 Months or Most Recently Relevant to Health Maintenance Insurance [facility] MEDICAID STAND ADULT
== END 2025-05-09 08:26 | disposition home or self-care (01) ==
LOC: HO.HOSX 08:25
DX: S52.502A Unspecified fracture of the lower end of left radius, initial encounter for closed fracture (principal); M25.532 Pain in left wrist; W01.0XXA Fall on same level from slipping, tripping and stumbling without subsequent striking against object, initial encounter
CPT/HCPCS: 29125; 73110; 99202

== ENCOUNTER 2025-05-09 08:46 | Outpatient (AMB) | payer MEDICARE, MEDICAID, SELFPAY ==
[2025-05-09 08:48] VITALS: BMI 25.6
--- NOTE | 2025-05-09 08:48 | A.OFFVIS_ITS ---
Vital Signs 05/09/25 08:48 Height 5 ft 4 in Weight 149 lb BMI 25.6 Intake Visit Reasons: FC-Lt wrist fx DOI: 05/01/25 Intake Note: Hallie is a 74 year old right hand dominant female who presents today for a Fracture Care Visit. On 05/01/25 she was transported to [facility] ambulance s/p trip and Fall landing on the left arm. While in the ED xrays were obtained showing a Left Distal Radius Fracture. She was placed in a sugar tong splint. Patient is here today with her daughter who wishes to interpret for her and has declined feather washer services. Patient reports that she is having pain in the wrist, Ibuprofen and Tylenol are not particularly helpful. Denies numbness and tingling. Splint off and Xrays updated Allergies No Known Allergies Allergy (Verified 05/09/25 09:07) HPI HPI FC-Lt wrist fx DOI: 05/01/25: Details: Hallie is a 74 year old right hand dominant female who presents today for a Fracture Care Visit. On 05/01/25 she was transported to [facility] ambulance s/p trip and Fall landing on the left arm. While in the ED xrays were obtained showing a Left Distal Radius Fracture. She was placed in a sugar tong splint. Patient is here today with her daughter who wishes to interpret for her and has declined feather washer services. Patient reports that she is having pain in the wrist, Ibuprofen and Tylenol are not particularly helpful. Denies numbness and tingling. Splint off and Xrays updated [facility] Medical History HTN (hypertension) GERD (gastroesophageal reflux disease) Asthma Social History Household Members: Family Housing: House Do you presently have visiting nurse or other home services: No Patient Tobacco Use Status: Never used Tobacco service: No Review of Systems Const All systems reviewed & are unremarkable except as noted in HPI and below Physical Exam Vital Signs: BMI result Body Mass Index 25.6 Extrem Other: Patient is alert, oriented, and in no acute distress. Neuro: Normal sensation of the tips of all digits of the left hand at this time Vascular: Cap refill brisk Pain: Tenderness to palpation about the left wrist at the level of the fracture of the left distal radius Pain with range of motion of the left hand ROM: Patient is able to weakly make a closed fist with the left hand Skin: No lacerations or abrasions. General: Ecchymosis noted throughout the left distal radius No erythema or evidence of infection Psych: Appears grossly normal Affect normal Attitude cooperative Office Procedures Casting/Splints 82874-Pomdndk Splint Application Procedure code (CPT) selection complete Results Reviewed Results Reviewed: X-rays obtained in the office today and independently reviewed by me, Davide Casas PA-C, demonstrate displaced fracture of the left distal radius with a proximally 15 degrees of apex volar angulation, largely unchanged from previous x-rays. Assessment & Plan Assessment & Plan (1) Closed fracture of left distal radius: Code(s): S52.502A - Unspecified fracture of the lower end of left radius, initial encounter for closed fracture Category: Medical Plan 1. Left distal radius fracture Date of injury 05/01/2025 I educated the patient about the condition. I discussed both operative and nonoperative treatment options. The patient would like to proceed with surgery. The risks and benefits of operative treatment were discussed with the patient and the patient wishes to proceed with surgery. These risks include, but are not limited to, risk of damage to blood vessels, nerves, tendons, infection, recurrence, incomplete relief of preoperative symptoms, persistent pain, possible need for further surgery, and the risks associated with regional blocks and/or anesthesia. Plan is to take the patient to the operating room at some point on 05/10/2025 for the following procedures: 1. Left distal radius ORIF under general anesthesia All of the preoperative paperwork including the consent was discussed today. All of the patient's questions were answered in the clinic today. The patient understands that they will be in contact with our surgical training specialist to discuss scheduling their procedure. Patient denies diabetes, blood thinners, asthma, heart issues, lung issues, kidney issues, or current smoking. Orders: Orders XR wrist LT w scaphoid Today M25.532 - Pain in left wrist Medications: Discontinued prednisone Discontinued Reason: Patient no longer taking 40 mg (2 x 20 mg) PO DAILY 10 tabs 0RF Coding Level of Care Code New Pt Level 4 (06444) Diagnoses Closed fracture of left distal radius S52.502A CPT Codes Splint - CPT: 08709-Alxtqfs Splint Application ([id number])
== END 2025-05-09 10:12 | disposition home or self-care (01) ==
LOC: HO.HOS 08:46
DX: S52.502A Unspecified fracture of the lower end of left radius, initial encounter for closed fracture (principal)
CPT/HCPCS: 29125; 99204

== ENCOUNTER → 2025-05-09 08:48 | Outpatient (BNV) | payer MEDICARE, MEDICAID, SELFPAY | PROVIDERS: Visit Provider Radiology Diagnostic Radiology | DX: S52.572A Other intraarticular fracture of lower end of left radius, initial encounter for closed fracture (principal) | CPT/HCPCS: 73110 ==

== ENCOUNTER 2025-05-10 07:40 | Day surgery (SDC) | payer MEDICARE, MEDICAID, SELFPAY ==
[2025-05-10] VITALS (8 sets, daily range): BP systolic 127–157; BP diastolic 63–78; PULSE 77–87; RESP 12–18; TEMP 36.1–36.3; O2SAT 88–97; BMI 25.6
--- NOTE | ~2025-05-10 | FL_ITS ---
EXAMINATION: FL GUIDANCE ONLY HISTORY: Radius Distal Fracture Left COMPARISON: Correlation is made with plain films of the left wrist dated 05/09/2025. TECHNIQUE: Fluoroscopy time: 30.288 seconds. Cumulative Dose: 1.0016 mGy. DAP: 0.0605 mGym2 Images: 6. FINDINGS: Images of the left wrist demonstrate internal fixation of the previously seen fracture of the distal radial metaphysis with a sideplate and multiple orthopedic screws. FL/FL guidance in OR IMPRESSION: Fluoroscopy during procedure. Please see procedure report for additional information. Electronically signed by: Brain Lazar MD 05/10/2025 11:48 AM EDT
--- NOTE | 2025-05-10 07:47 | ECG_ITS ---
Test Reason : preop abn ekg Blood Pressure : */* mmHG Vent. Rate : 84 BPM Atrial Rate : 84 BPM P-R Int : 120 ms QRS Dur : 80 ms QT Int : 374 ms P-R-T Axes : 37 2 12 degrees QTcB Int : 441 ms Normal sinus rhythm Inferior infarct (cited on or before 11-Oct-2024) Abnormal ECG When compared with ECG of 11-Oct-2024 14:39, Vent. rate has decreased by 43 bpm Questionable change in initial forces of Inferior leads Nonspecific T wave abnormality no longer evident in Lateral leads Referred By: Brittney Patterson Electronically Signed By: HERMINIO WILLARD MD
[2025-05-10] MEDS: Lactated Ringers 1,000 ML 100 ML IVCONT (08:12)
--- NOTE | 2025-05-10 08:29 | HO.ANESPROP2 ---
HPI - Anesthesia Eval Consult details Narrative: orif radius PMFSH Active Problems Active Problems: All Active Problems Closed fracture of left distal radius (Acute) RSV infection (Acute) Past Medical History Medical History HTN (hypertension) GERD (gastroesophageal reflux disease) Asthma Family History Family history of problems with anesthesia: No Surgical History History of Problems with Anesthesia: No Social History Social History Household Members: Family Housing: House Are you a primary social worker palliative care to a significant other at home: No Do you presently have visiting nurse or other home services: No Patient Tobacco Use Status: Never used Tobacco Second Hand Smoke Exposure: No Use of substances other than those prescribed or required for medical reasons: No Have you been hit, kicked, punched, or otherwise hurt by someone within the past year? If so, by whom?: No Are you DNR?: No Advance Directives: No Advance Directives Information Provided: Yes Advance Directives on File: No Patient : No : No Poor oral hygiene: No service: No Meds Allergies Allergy/AdvReac Type Severity Reaction Status Date / Time No Known Allergies Allergy Verified 05/09/25 09:07 Active Medications: Current Medications Albuterol Sulfate (Albuterol Sulfate (0.083%) 2.5 Mg/3 Ml Vial.Neb) 2.5 mg INHALE ONCE PRN PRN Reason: Shortness of Breath/Wheezing Lactated Ringer's (Lr) 1,000 mls @ 100 mls/hr IVCONT .Q10H SAM Last Admin: 05/10/25 08:12 Dose: 100 mls/hr Home Medications ?Medication ?Instructions ?Recorded ?Confirmed ?Last Taken ?Type albuterol sulfate 90 mcg/actuation 2 puff inhalation QID PRN asthma 10/11/24 10/11/24 10/10/24 History aerosol inhaler atorvastatin 20 mg tablet 20 mg PO DAILY 10/11/24 10/11/24 10/10/24 History budesonide-formoterol HFA 160 1 puff inhalation BID 10/11/24 10/11/24 Unknown History mcg-4.5 mcg/actuation aerosol inhaler losartan 100 mg tablet 100 mg PO DAILY 10/11/24 10/11/24 10/10/24 History pantoprazole 40 mg tablet,delayed 40 mg PO DAILY@0630 10/11/24 10/11/24 10/10/24 History release sennosides 8.6 mg-docusate sodium 2 tab PO BEDTIME 10/11/24 10/11/24 10/10/24 History 50 mg tablet (Senexon-S) Exam Height,Weight and Vital Signs: Height 5 ft 4 in Weight 67.585 kg Last Vital Signs Temp 97.2 F 05/10/25 08:04 Pulse 84 05/10/25 08:04 Resp 18 05/10/25 08:04 BP 157/78 H 05/10/25 08:04 Pulse Ox 97 05/10/25 08:04 O2 Del Method Room Air 05/10/25 08:04 Airway Mallampati Class: II TM Dist: >3cm Neck ROM: Limited Heart: rrr Assessment and Plan Assessment Anesthesia Assessment: Anesthesia Plan Discussed and Chart Reviewed Final Anesthetic Review Family History of Problems with Anesthesia: No History of Problems with Anesthesia: No NPO: Yes ASA Class: II Final Preanesthetic Review: No Changes in Pt Med Stat, Meds/Allgs Chart Reviewed, Consent Obtained/Reviewed and Anes Risks/Benef Reviewed Patient Risk: Low Procedure Risk: Intermediate Anesthetic Plan Anesthetic Plan: GA, Regional Block and Agree w/ Assess. and Plan Disposition: Standard PACU
--- NOTE | 2025-05-10 09:19 | P.OP_ITS ---
Operative Note Operative Note Date of Service: 05/10/25 Narrative: Operative Note Narrative: Preop diagnosis: 1. Left Distal radius fracture Postop diagnosis: Same Procedure: 1. Left Distal radius fracture open reduction internal fixation , extra- articular Surgeon: Jenise Velázquez MD Pigment Making Supervisor: Davide MOORE Anesthesia: General anesthesia plus regional block Findings: Left distal radius fracture Implants: A 3 hole Accu Med volar locking plate, with 4 X 2.3 mm locking pegs/screws, and 3 3.5 mm cortical screws Tourniquet time: 51 minutes EBL: 5.0 ml Specimen: None Drains: None Complications: None Disposition: Brought to the recovery room in stable condition Plan: Follow-up in 10-14 days for wound check, suture removal and postop radiographs The patient will be placed in either a short-arm cast or a volar wrist splint. Encouraged no lifting of anything heavier than a cell phone. Please encourage active and passive range of motion of the digits. Follow-up at 4-5 weeks postop for repeat radiographs. Indications: The patient is a 74 year old woman with left displaced distal radius fracture . The risks and benefits of operative treatment, including but not limited to risk of damage to blood vessels, nerves, tendons, infection, recurrence, persistent pain or numbness, incomplete resolution of preoperative symptoms, or need for further surgery were discussed with the patient and they wished to proceed with surgery. Procedure: Once consent was obtained patient was brought back to the operating suite and placed in the operating table in a supine position. A regional block was performed by the anesthesia team. Perioperative antibiotics and anesthesia was administered by the anesthesia team. A tourniquet was applied to the proximal aspect of the left upper extremity and the limb was prepped and draped in a standard surgical fashion. The limb was elevated exsanguinated with Esmarch bandage and the tourniquet inflated to 250 mm of mercury for a total tourniquet time of 51 minutes. The FluoroScan was used throughout the case to assess our reduction, and facilitate implant placement. A gentle closed reduction was 1st performed on the patient's left distal radius fracture. Was assessed radiographically before proceeding with the reduction internal fixation. I then made an 8 cm longitudinal incision over the distal aspect of the flexor carpi radialis tendon. The incision was made through the skin to the subcutaneous tissue using a 15. Blade. Then carefully dissected down to flexor carpi radialis tendon she tenotomy scissors. The FCR tendon sheath was then incised longitudinally using tenotomy scissors under direct visualization. The FCR tendon was then retracted ulnarly. I then made a longitudinal incision in the volar forearm fascia through the floor of FCR tendon sheath using tenotomy scissors under direct visualization. I identified the interval between the radial artery and the flexor tendons. This interval was developed further with my index finger, releasing some of the muscular fibers of the flexor pollicis longus. A dull weatlander retractor was then placed. I then created an ulnarly based flap of the pronator quadratus by releasing the radial and distal edges using a 15. Blade. A Wilcox elevator was used to elevate the pronator quadratus from the volar surface of the distal radius. This then revealed to us our distal radius fracture. An open reduction was then performed on our distal radius fracture. I then placed a short narrow 3 hole Accu Med volar locking plate on the volar surface of the distal radius. I placed a single K-wire through the distal aspect of the plate and into the distal radius. This was assessed using fluoroscopic images. I was satisfied with the placement of our plate. I then placed 4 X 2.3 mm locking screws/pegs in the distal aspect of the plate and distal radius by 1st drilling bicortically with a 2.0 mm drill bit, measuring with a depth gauge, and placing the appropriate length locking screws/pegs. The placement of our plate and screws was then assessed again using fluoroscopic images. The once satisfied with the placement of the volar locking plate and screws on the distal aspect of the distal radius, the plate was then reduced to the shaft of the radius. I then placed 3 X 3.5 mm cortical screws to the proximal aspect of the plate and into the shaft of the radius. This was done by 1st drilling bicortically with a 2.8 mm drill bit, measuring with a depth gauge, and placing the appropriate length screw. Final radiographs were then obtained. The DRUJ was assessed and found to be stable on exam. I was satisfied with our reduction and placement of all implants. At this point the wound was irrigated with normal saline. The pronator quadratus was reduced back over the volar locking plate using some 3-0 Vicryl suture material. The tourniquet was then deflated and hemostasis was obtained with a brief period of local pressure and bipolar monopolar electrocautery. The subcutaneous layer was then reapproximated using some 4-0 Vicryl suture, and the skin edges were reapproximated using some 5 0 Prolene suture. The wound was then infiltrated with some 1% lidocaine with epinephrine postop pain control. A sterile dressing and a short dorsal splint allowing for active flexion and extension of the digits was applied. The patient appears to have tolerated the procedure well and with no complications. All digits were well vascularized conclusion of the case.
--- NOTE | 2025-05-10 09:19 | MHC.SHP ---
Pre-Procedural Eval Section A - 24 Hr Update-Section A only Date of Service: 05/10/25 The patient is an INPATIENT: No Changes since office visit: No Cold of Flu in the past 2 weeks, No New Medical Problems, No Changes in Medication and No Patient answered all questions The patient has been examined within 24 hours of the surgical procedure. The History & Physical has been completed within 30 days and I have reviewed it.: Yes Section B - Complete if H&P > 30 days Chief Complaint: Unspecified fracture of the lower end of left Allergies: Allergies Allergy/AdvReac Type Severity Reaction Status Date / Time No Known Allergies Allergy Verified 05/09/25 09:07 Plan I have reviewed the history and physical and performed a pertinent physical examination on my patient. No changes have occurred unless specified. Time Spent With Patient Time: Total time managing care of this patient today ____ minutes.
== END 2025-05-10 12:48 | disposition home or self-care (01) ==
PROVIDERS: Visit Provider Orthopaedic Surgery
PROC: (CPT 25607; principal; 2025-05-10 09:10)
DX: S52.552A Other extraarticular fracture of lower end of left radius, initial encounter for closed fracture (principal); W01.0XXA Fall on same level from slipping, tripping and stumbling without subsequent striking against object, initial encounter; Y93.01 Activity, walking, marching and hiking; Y92.9 Unspecified place or not applicable; Y99.9 Unspecified external cause status; I10 Essential (primary) hypertension; J45.909 Unspecified asthma, uncomplicated; K21.9 Gastro-esophageal reflux disease without esophagitis
CPT/HCPCS: 25607; 93005; C1713; J0131; J0665; J0690; J1100; J2003; J2004; J2250; J2405; J2704; J2795; J3010

== ENCOUNTER → 2025-05-10 07:40 | Outpatient (BNV) | payer MEDICARE, MEDICAID, SELFPAY | PROVIDERS: Visit Provider Orthopaedic Surgery | DX: S52.592A Other fractures of lower end of left radius, initial encounter for closed fracture (principal) | CPT/HCPCS: 25607 ==

== ENCOUNTER → 2025-05-10 07:47 | Outpatient (BNV) | payer MEDICARE, MEDICAID, SELFPAY | PROVIDERS: Visit Provider Internal Medicine Cardiovascular Disease | DX: I25.2 Old myocardial infarction (principal) | CPT/HCPCS: 93010 ==

== ENCOUNTER 2025-05-23 08:52 | Outpatient (AMB) | payer MEDICARE, MEDICAID, SELFPAY ==
--- NOTE | 2025-05-23 09:00 | MHC.OFFVIS ---
Vital Signs 05/23/25 09:04 Height 5 ft 1 in Weight 150 lb BMI 28.3 Intake Visit Reasons: PO LT distal radius ORIF 05/10/25 AR Intake Note: Hallie 74 yr old right hand dominant female presents today for her p/o visit for her left distal radius ORIF from DOS 05/10/[address] Velázquez. Dressing removed in office and xrays updated. States she is having a little discomfort but os doing well over all. Allergies No Known Allergies Allergy (Verified 05/23/25 09:04) HPI HPI PO LT distal radius ORIF 05/10/25 AR: Details: Hallie is a 74 year old right hand dominant Telugu speaking woman who presents S/p left distal radius ORIF, DOS: 04/12/25. She fell on 05/01/25. 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 [facility] Medical History HTN (hypertension) GERD (gastroesophageal reflux disease) Asthma Social History Household Members: Family Housing: House Are you a primary care management associate to a significant other at home: No Do you presently have visiting nurse or other home services: No Patient Tobacco Use Status: Never used Tobacco Second Hand Smoke Exposure: No service: No Review of Systems Const All systems reviewed & are unremarkable except as noted in HPI and below Physical Exam Vital Signs: BMI result Body Mass Index 28.3 Const General: no acute distress and alert Orientation/consciousness: patient oriented x3 HEENT Head: Yes normocephalic and Yes atraumatic Eyes EOM: EOMs intact bilaterally Resp Effort & Inspection: normal respiratory effort and able to speak in complete sentences Cardio Jugular venous distension: no JVD Skin General skin exam: turgor normal Rashes: no rashes Neuro General: patient oriented x3 Extrem Other: The patient was alert oriented and in no acute distress The incision is healing well with no erythema drainage or evidence of infection. Sutures removed and Steri-Strips applied She can make a fist and extend all her digits Almost normal pronosupination Sensation is intact Cap refill is brisk Radiographs: 3 views of the left wrist were taken and viewed by me today in clinic. They show a disal radius fracture with satisfactory fracture alignment and position of all implants. Psych Appearance: grossly normal Affect: normal affect Attitude: cooperative Assessment & Plan Assessment & Plan (1) Closed fracture of left distal radius: Code(s): S52.502A - Unspecified fracture of the lower end of left radius, initial encounter for closed fracture Category: Medical Plan Assessment & Plan: 1. Left distal radius fracture, S/P ORIF DOS: 05/10/25 DOI: 05/01/25 The patient appears to be doing well post-operatively I educated her and her daughter about the post-operative course I explained the signs and symptoms of infection, if the patient develops any new or worsening erythema, drainage, pain, or warmth they should contact the clinic or attend the ED. She was fitted for a velcro wrist splint, to be worn like a cast except for showering, for the next 3 weeks I discussed activity modifications, she is to lift nothing heavier than a cellphone for the next 4 weeks, and is to avoid any falls or heavy impact activities She will perform gentle finger ROM exercises at home She will follow up in 3 weeks, with X-rays, 3V L wrist, OOP Scribed for Jenise Velázquez MD by Alex Woodward, medical claims specialist, on 05/23/25 at 9:10 AM, EST. Orders: Orders XR wrist LT min 3V Today M25.532 - Pain in left wrist Coding Level of Care Code Global (49207) Diagnoses Closed fracture of left distal radius S52.502A
[2025-05-23 09:04] VITALS: BMI 28.3
--- OUTSIDE RECORDS SUMMARY | 2025-05-23 09:13 | XMS_ITS | Patient Health Record ---
Author Organization [facility] Address [address] [place] [address] Care Team Providers Care Graduate Intern Name Role Phone Brain Persaud Unavailable [phone] Reason For Referral No Information Plan Of Treatment No Information
--- OUTSIDE RECORDS SUMMARY | 2025-05-23 09:13 | XMS_ITS | Clinical Summary ---
Author Organization [facility] Address [address] [place] [address] [address] [place] [address] Care Team Providers Care Estimator Printing Name Role Phone Unavailable Primary Care Provider [...] Description 02/20/2025 1:30 PM EDT Office Visit [facility] [address] [place] [id number] Maxwell Walker DMD from Last 3 Months [...] Most Recently Relevant to Health Maintenance Insurance [facility] MEDICAID STAND ADULT
== END 2025-05-23 09:36 | disposition home or self-care (01) ==
LOC: HO.HOS 08:53
PROVIDERS: Visit Provider Orthopaedic Surgery
DX: S52.502A Unspecified fracture of the lower end of left radius, initial encounter for closed fracture (principal)
CPT/HCPCS: 99024

== ENCOUNTER → 2025-05-23 08:54 | Outpatient (BNV) | payer MEDICARE, MEDICAID, SELFPAY | PROVIDERS: Visit Provider Radiology Diagnostic Radiology | DX: S52.502G Unspecified fracture of the lower end of left radius, subsequent encounter for closed fracture with delayed healing (principal) | CPT/HCPCS: 73110 ==

== ENCOUNTER 2025-05-23 10:19 | Outpatient (REF) | payer MEDICARE, MEDICAID, SELFPAY ==
--- NOTE | ~2025-05-23 | XR_ITS ---
EXAMINATION: XR WRIST 3 OR MORE VIEWS LEFT HISTORY: M25.532 - Pain in left wrist COMPARISON: Comparison is made with the prior examination dated 04/09/2025. FINDINGS: Three views of the left wrist are submitted. Osseous mineralization is normal. The patient is status post internal fixation of the previously noted fracture of the distal radial metaphysis with a sideplate and multiple orthopedic screws. Alignment is anatomic. The fracture line remains visible. The joint spaces are preserved. The soft tissues are unremarkable. XR/XR wrist LT min 3V IMPRESSION: Internal fixation of the previously seen fracture of the distal radial metaphysis. Electronically signed by: Brain Lazar MD 05/23/2025 09:27 AM EDT
--- OUTSIDE RECORDS SUMMARY | 2025-05-24 11:07 | XMS_ITS | Clinical Summary ---
Author Organization [facility] Address [address] [place] [address] [address] [place] [address] Care Team Providers Care Blacking Wheel Tender Name Role Phone Unavailable Primary Care Provider Unavailabl e Allergies No known active allergies Medications hydroCHLOROthiaz alex (Microzide) 12.5 MG capsule 04/16/2024 Act jenelle losartan (Cozaar) 100 MG tablet Take 1 tablet by mouth Once per day. 10/05/2024 Active atorvastatin (Lipitor) 20 MG tablet Take 1 tablet by mouth Once per day. 10/05/2024 Active Active Problems No known active problems Social History Tobacco Use Types Packs/Day Years [...] - 1-dose 75+ series) 2023 COVID-19 Vaccine (2023-2 5 season) 2024 Dental Oral Exam 05/23/2025 [...] Procedure Name Priority Date/Time Associated Diagnosis Comments PANORAMIC RADIOGRAPHIC IMAGE Routine 11/22/2024 9:00 AM EST COMPREHENSIVE ORAL EVALUATION - NEW OR ESTABLISHED PATIENT Routine 11/22/2024 9:00 AM EST from Last 3 Months or Most Recently Relevant to Health Maintenance Insurance [facility] MEDICAID STAND ADULT
--- OUTSIDE RECORDS SUMMARY | 2025-05-24 11:07 | XMS_ITS | Patient Health Record ---
Author Organization [facility] Address [address] [place] [address] Care Team Providers Care Reconstructive Dentist Name Role Phone Brain Persaud Unavailable [phone] Reason For Referral No Information Plan Of Treatment No Information
== END 2025-05-23 10:20 | disposition home or self-care (01) ==
LOC: HO.HOSX 10:19
PROVIDERS: Visit Provider Orthopaedic Surgery
DX: Z47.89 Encounter for other orthopedic aftercare (principal); S52.502D Unspecified fracture of the lower end of left radius, subsequent encounter for closed fracture with routine healing; M25.532 Pain in left wrist; W19.XXXD Unspecified fall, subsequent encounter
CPT/HCPCS: 73110; 99212

== ENCOUNTER 2025-06-12 09:11 | Outpatient (REF) | payer MEDICARE, MEDICAID, SELFPAY ==
--- OUTSIDE RECORDS SUMMARY | 2025-06-14 09:43 | XMS_ITS | Patient Health Record ---
Author Organization [facility] Address [address] [place] [address] Care Team Providers Care Foot Cutter Name Role Phone Brain Persaud Unavailable [phone] Reason For Referral No Information Plan Of Treatment No Information
--- OUTSIDE RECORDS SUMMARY | 2025-06-14 09:43 | XMS_ITS | Clinical Summary ---
Author Organization [facility] Address [address] [place] [address] [address] [place] [address] Care Team Providers Care Automobile Dealer Name Role Phone Unavailable Primary Care Provider [...] older (1 - 1-dose 75+ series) 2023 Dental Oral Exam 05/23/2025 11/22/2024 COVID-19 Vaccine ( - 2023-2 5 season) 2025 Influenza Vaccine (#1) 2025 Tobacco Screening 02/20/2026 [...] Most Recently Relevant to Health Maintenance Insurance [facility] MEDICAID STAND ADULT
== END 2025-06-12 09:12 | disposition home or self-care (01) ==
LOC: HO.HOSX 09:11
PROVIDERS: Visit Provider Orthopaedic Surgery
DX: Z13.89 Encounter for screening for other disorder (principal)

== ENCOUNTER 2025-08-01 08:18 | Outpatient (REF) | payer MEDICARE, MEDICAID, SELFPAY ==
--- NOTE | ~2025-08-01 | XR_ITS ---
CLINICAL HISTORY: M25.532 - Pain in left wrist 3 view left wrist Comparison: DX/SR - XR WRIST 3 OR MORE VIEWS LEFT - 05/23/25 08:54 EDT Findings: Metallic plate and fixation screws are seen transfixing a healing distal radial fracture without evidence of hardware failure or loosening. No new osseous abnormality is identified. Soft tissue structures appear intact. IMPRESSION: Internal fixation of a healing distal radial fracture without evidence of hardware failure or loosening. This document has been electronically signed by: Madelyn Bucio on 08/03/2025 08:42:13
--- OUTSIDE RECORDS SUMMARY | 2025-08-01 08:26 | XMS_ITS | Patient Health Record ---
Author Organization [employer] [facility] Address [address] [place] [address] Care Team Providers Care Industrial Designer Name Role Phone Brain Persaud Unavailable [phone] Reason For Referral No Information Plan Of Treatment No Information
--- OUTSIDE RECORDS SUMMARY | 2025-08-01 08:26 | XMS_ITS | Clinical Summary ---
Author Organization [employer] [facility] Address [address] [place] [address] [address] [place] [address] Care Team Providers Care Primary Special Educator Name Role Phone Unavailable Primary Care Provider [...] Care Team (Late st Contact Info) Description 08/14/2025 9:00 AM EST Office Visit [facility] [address] [place] [address] Maxwell Walker, [address] [place] [address] Health Maintenance Due Date Last Done Comments [...] Dental Oral Exam 05/23/2025 11/22/2024 COVID-19 Vaccine (1 - 2023-2 5 season) 2025 Influenza Vaccine [...] Most Recently Relevant to Health Maintenance Insurance [facility] MEDICAID STAND ADULT
== END 2025-08-01 08:19 | disposition home or self-care (01) ==
LOC: HO.HOSX 08:18
DX: S52.502D Unspecified fracture of the lower end of left radius, subsequent encounter for closed fracture with routine healing (principal); X58.XXXD Exposure to other specified factors, subsequent encounter
CPT/HCPCS: 29075; 73110; 99212

== ENCOUNTER 2025-08-01 12:45 | Outpatient (AMB) | payer MEDICARE, MEDICAID, SELFPAY ==
--- NOTE | 2025-08-01 13:02 | A.OFFVIS_ITS ---
Vital Signs 08/01/25 13:03 Height 5 ft 1 in Weight 150 lb BMI 28.3 Intake Visit Reasons: PO LT distal radius ORIF 05/10/25 AR w/XR Intake Note: Hallie is a 74 year old right hand dominant female who presents today for a Post-operative visit status post Left Distal Radius ORIF, DOS: 05/10/[address] Velázquez. She was last evaluated by Dr. Velázquez on 05/23/25. At that time, she was placed in a Velcro wrist brace to be worn like a cast except for showering for the following 3 weeks. She was also advised to lift nothing heavier than a cell phone for 4 weeks and to work on gentle range of motion. Today, patient complains of pain on the dorsal aspect of the left wrist, radiating to the left upper arm. Denies numbness, tingling, finger locking. Denies new injuries to the left hand. Siebel Administrator Required: Yes Siebel Administrator Language: Jet [employer] Services: Siebel Administrator Present Siebel Administrator Name: VEGA Will/CECE Allergies No Known Allergies Allergy (Verified 08/01/25 13:03) HPI HPI PO LT distal radius ORIF 05/10/25 AR w/XR: Details: Hallie is a 74 year old right hand dominant female who presents today for a Post-operative visit status post Left Distal Radius ORIF, DOS: 05/10/[address] Velázquez. She was last evaluated by Dr. Velázquez on 05/23/25. At that time, she was placed in a Velcro wrist brace to be worn like a cast except for showering for the following 3 weeks. She was also advised to lift nothing heavier than a cell phone for 4 weeks and to work on gentle range of motion. Unfortunately, patient did not attend her most previous follow-up. Today, patient complains of pain on the dorsal aspect of the left wrist, radiating to the left upper arm. Denies numbness, tingling, finger locking. Denies new injuries to the left hand. [facility] Medical History HTN (hypertension) GERD (gastroesophageal reflux disease) Asthma Social History Household Members: Family Housing: House Are you a primary critical care specialist to a significant other at home: No Do you presently have visiting nurse or other home services: No Patient Tobacco Use Status: Never used Tobacco Second Hand Smoke Exposure: No service: No Review of Systems Const All systems reviewed & are unremarkable except as noted in HPI and below Physical Exam Vital Signs: BMI result Body Mass Index 28.3 Const General: no acute distress and alert Orientation/consciousness: patient oriented x3 HEENT Head: Yes normocephalic and Yes atraumatic Eyes EOM: EOMs intact bilaterally Resp Effort & Inspection: normal respiratory effort and able to speak in complete sentences Cardio Jugular venous distension: no JVD Skin General skin exam: turgor normal Rashes: no rashes Neuro General: patient oriented x3 Extrem Other: The patient was alert oriented and in no acute distress The incision is healing well with no erythema drainage or evidence of infection. Sutures removed and Steri-Strips applied She can make a fist and extend all her digits Tenderness to palpation noted particularly of the dorsal aspect of the left distal radius Some tenderness also noted of the volar aspect of the left distal radius Almost normal pronosupination Sensation is intact Cap refill is brisk Radiographs: 3 views of the left wrist were taken and viewed by me today in clinic. They show a disal radius fracture with satisfactory fracture alignment and position of all implants. Psych Appearance: grossly normal Affect: normal affect Attitude: cooperative Office Procedures Casting/Splints 72526-Xqhe/Wrist Cast Application Procedure code (CPT) selection complete Results Reviewed Results Reviewed: X-rays obtained in the office today and independently reviewed by me, Davide Casas PA-C, demonstrate displaced fracture of the left distal radius with a pr oximally 15 degrees of apex volar angulation, largely unchanged from previous x- rays. There is evidence of remaining fracture site of the volar aspect of the left distal radius under plate Assessment & Plan Assessment & Plan (1) Closed fracture of left distal radius: Code(s): S52.502A - Unspecified fracture of the lower end of left radius, initial encounter for closed fracture Category: Medical Plan Assessment & Plan: 1. Left distal radius fracture, S/P ORIF DOS: 05/10/25 DOI: 05/01/25 The patient appears to be doing well post-operatively I educated her and her daughter about the post-operative course Due to her ongoing pain and ongoing evidence of fracture on x-ray, I feel it was prudent to place the patient back into a short-arm cast for 4 weeks to encourage healing and discourage excessive activity Patient is educated on proper cast care and precautions She will perform gentle finger ROM exercises at home She will follow up in 4 weeks, with X-rays, 3V L wrist, OOP Orders: Orders XR wrist LT min 3V Today M25.532 - Pain in left wrist Coding Level of Care Code Global (58075) Diagnoses Closed fracture of left distal radius S52.502A CPT Codes Casting - CPT: 83555-Ikhy/Wrist Cast Application ([id number])
[2025-08-01 13:03] VITALS: BMI 28.3
== END 2025-08-01 13:55 | disposition home or self-care (01) ==
LOC: HO.HOS 12:45
DX: S52.502A Unspecified fracture of the lower end of left radius, initial encounter for closed fracture (principal)
CPT/HCPCS: 29075; 99024

== ENCOUNTER → 2025-08-01 12:51 | Outpatient (BNV) | payer MEDICARE, MEDICAID, SELFPAY | PROVIDERS: Visit Provider Radiology Vascular & Interventional Radiology | DX: M25.532 Pain in left wrist (principal) | CPT/HCPCS: 73110 ==

== ENCOUNTER 2025-08-27 13:01 | Outpatient (AMB) | payer MEDICARE, MEDICAID, SELFPAY ==
[2025-08-27 13:26] VITALS: BMI 28.3
--- NOTE | 2025-08-27 13:26 | A.OFFVIS_ITS ---
Vital Signs 08/27/25 13:26 Height 5 ft 1 in Weight 150 lb BMI 28.3 Intake Visit Reasons: OV: LT distal radius ORIF 05/10/25 AR w/XR Intake Note: Hallie is a 74 year old right hand dominant female who presents today for a Follow Up status post Left Distal Radius ORIF, DOS: 05/10/[address] Velázquez. At her last visit she was placed back into a short-arm cast for 4 more weeks and advised to perform gentle finger ROM exercises at home. Patient complains of pain on the dorsal aspect. Cast removed to update x-rays. Supervisor Type Photography Required: No Allergies No Known Allergies Allergy (Verified 08/27/25 13:27) HPI HPI OV: LT distal radius ORIF 05/10/25 AR w/XR: Details: Hallie is a 74 year old right hand dominant female who presents today for a Follow Up status post Left Distal Radius ORIF, DOS: 05/10/[address] Velázquez. At her last visit she was placed back into a short-arm cast for 4 more weeks and advised to perform gentle finger ROM exercises at home. Patient complains of pain on the dorsal aspect of the wrist with movement, but states that her pain has improved significantly, and she experienced no pain while in the cast.. Cast removed to update x-rays. [facility] Medical History HTN (hypertension) GERD (gastroesophageal reflux disease) Asthma Social History Household Members: Family Housing: House Are you a primary medication care manager to a significant other at home: No Do you presently have visiting nurse or other home services: No Patient Tobacco Use Status: Never used Tobacco Second Hand Smoke Exposure: No service: No Review of Systems Const All systems reviewed & are unremarkable except as noted in HPI and below Physical Exam Vital Signs: BMI result Body Mass Index 28.3 Const General: no acute distress and alert Orientation/consciousness: patient oriented x3 HEENT Head: Yes normocephalic and Yes atraumatic Eyes EOM: EOMs intact bilaterally Resp Effort & Inspection: normal respiratory effort and able to speak in complete sentences Cardio Jugular venous distension: no JVD Skin General skin exam: turgor normal Rashes: no rashes Neuro General: patient oriented x3 Extrem Other: The patient was alert oriented and in no acute distress The incision is well healed She can make a fist and extend all her digits No Tenderness to palpation of any aspect of the left distal radius Patient does have pain with wrist flexion and extension, primarily with flexion of the dorsal aspect Almost normal pronosupination Sensation is intact Cap refill is brisk Radiographs: 3 views of the left wrist were taken and viewed by me today in clinic. They show a disal radius fracture with satisfactory fracture alignment and position of all implants with evidence of improved healing from previous evaluation Psych Appearance: grossly normal Affect: normal affect Attitude: cooperative Assessment & Plan Assessment & Plan (1) Closed fracture of left distal radius: Code(s): S52.502A - Unspecified fracture of the lower end of left radius, initial encounter for closed fracture Category: Medical Plan Assessment & Plan: 1. Left distal radius fracture, S/P ORIF DOS: 05/10/25 DOI: 05/01/25 The patient appears to be doing well post-operatively I educated her and her daughter about the post-operative course Due to the fact that the patient is no longer experiencing tenderness, I feel it is safe to remove her from a cast and place her back into a Velcro wrist splint Patient is educated that I feel that doing too much as the reason she developed such significant pain at previous evaluation, and is educated once again that she is not to be lifting anything more than a cell phone in the left hand, as well as not putting significant force through the left hand and wrist Patient is educated on proper cast care and precautions She will perform gentle finger ROM exercises at home She will follow up in 4 weeks, with X-rays, 3V L wrist, OOP Orders: Orders XR wrist LT min 3V Today M25.532 - Pain in left wrist OT Evaluation and Treatment Today S52.502A - Unspecified fracture of the lower end of left radius, initial encounter for closed fracture Coding Level of Care Code Est Pt Level 3 (13481) Diagnoses Closed fracture of left distal radius S52.502A
== END 2025-08-27 14:02 | disposition home or self-care (01) ==
LOC: HO.HOS 13:02
DX: S52.502A Unspecified fracture of the lower end of left radius, initial encounter for closed fracture (principal)
CPT/HCPCS: 99213

== ENCOUNTER 2025-08-27 13:01 | Outpatient (REF) | payer MEDICARE, MEDICAID, SELFPAY ==
--- NOTE | ~2025-08-27 | XR_ITS ---
EXAMINATION: XR WRIST, LEFT CLINICAL INFORMATION: M25.532 - Pain in left wrist COMPARISON: 08/01/2025 TECHNIQUE: PA, lateral, and oblique views of the left wrist. FINDINGS: Again identified across the distal radius. There is no hardware breakage or abnormal lucency at bone metal interfaces. Fracture line across the distal radius is less evident with increasing sclerosis, most apparent on the lateral projection. There is diffuse osteopenia. XR/XR wrist LT min 3V IMPRESSION: Healing distal radial fracture post-ORIF. Electronically signed by: Nestor Duran MD 08/27/2025 02:07 PM MANISHA KUMARI
== END 2025-08-27 13:02 | disposition home or self-care (01) ==
LOC: HO.HOSX 13:01
DX: S52.502D Unspecified fracture of the lower end of left radius, subsequent encounter for closed fracture with routine healing (principal)
CPT/HCPCS: 73110

== ENCOUNTER → 2025-08-27 13:38 | Outpatient (BNV) | payer MEDICARE, MEDICAID, SELFPAY | PROVIDERS: Visit Provider Radiology Diagnostic Radiology | DX: M25.532 Pain in left wrist (principal) | CPT/HCPCS: 73110 ==